=== PATIENT | male | born 1975 | race Two or more races ===

== ENCOUNTER 2019-08-03 17:50 | Inpatient (IN) | payer MEDICAID ==
[~2019-08-03] VITALS: Ht 180.3 cm; Wt 78.1 kg
[2019-08-03] MEDS ORDERED: RISP1TAB27 PO (20:10)
[2019-08-03 23:12] VITALS: BP 107/64
[2019-08-04 03:57] VITALS: BP 113/64
[2019-08-04 07:28] LABS: BASOPHILS % (AUTO) 0.7 % (0.0-2.0); EOSINOPHILS % (AUTO) 4.3 % (1.0-6.0); HEMATOCRIT 42.6 % (41-53); HEMOGLOBIN 13.9 g/dL (13.5-17.5); LYMPHOCYTES # (AUTO) 1.9 K/uL (1.0-4.8); MEAN CORPUSCULAR HEMOGLOBIN 29.2 pg (26.0-34.0); MEAN CORPUSCULAR HGB CONC 32.7 G/dL (31.0-37.0); MEAN CORPUSCULAR VOLUME 89 fL (80-100); MONOCYTES # (AUTO) 0.6 K/uL (0.1-1.0); MONOCYTES % (AUTO) 10.8 % (2.0-9.0); NEUTROPHILS # (AUTO) 2.8 K/uL (1.8-7.7); NEUTROPHILS % (AUTO) 50.2 % (40.0-70.0); PLATELET COUNT (AUTO) 243 K/uL (150-450); RED BLOOD CELL COUNT(AUTO) 4.78 MIL/uL (4.50-5.90); RED CELL DISTRIBUTION WIDTH 14.1 % (11.5-14.5)
[2019-08-04 07:41] LABS: ALANINE AMINOTRANSFERASE 335 U/L (12-78); ALBUMIN 3.4 g/dL (3.4-5.0); ALKALINE PHOSPHATASE 91 U/L (46-116); ANION GAP 8 mmol/L (8-16); ASPARTATE AMINOTRANSFERASE 67 U/L (15-37); BILIRUBIN,TOTAL 0.6 mg/dL (0.1-1.0); CALCIUM, TOTAL 8.5 mg/dL (8.8-10.5); CARBON DIOXIDE 26 mmol/L (22-29); CHLORIDE 105 mmol/L (98-107); CHOL/HDL RATIO 4.7 (4.2-7.3); CHOLESTEROL 156 mg/dL (131-200); CREATININE 0.76 mg/dL (0.60-1.30); FREE T4 (FREE THYROXINE) 1.07 ng/dL (0.76-1.46); GLOMERULAR FILTR. RATE CALC > 60 mL/min (>60); GLUCOSE,RANDOM 80 mg/dL (70-110); HDL CHOLESTEROL 33 mg/dL (40-60); LDL CHOL (CALC.) 92 mg/dL (0-130); POTASSIUM 4.3 mmol/L (3.5-5.1); SODIUM SERUM 139 mmol/L (136-145); THYROID STIMULATING HORMONE 2.62 uIU/mL (0.36-3.74); TOTAL PROTEIN, SERUM 6.9 g/dL (6.4-8.2); TRIGLYCERIDES 156 mg/dL (15-150); UREA NITROGEN, BLOOD 16 mg/dL (7-18)
[2019-08-04 07:43] LABS: HEMOGLOBIN A1C 5.5 % (3.8-5.6)
[2019-08-04 08:13] VITALS: BP 105/62
[2019-08-04] MEDS ORDERED: ACETAMINOPHEN 325 MG TABLET PO PRN (08:30)
[2019-08-04] MEDS ORDERED: MAGNESIUM HYDROXIDE SUSPENSION 30 ML UDCUP PO PRN (08:30)
[2019-08-04] MEDS ORDERED: GuaiFENesin/D-METHORPHAN [SUGAR-FREE] 200-20MG/10 ML SYRUP UDCUP PO PRN (08:30)
[2019-08-04] MEDS ORDERED: CloNIDine HCL 0.1 MG TABLET PO PRN (08:30)
[2019-08-04] MEDS ORDERED: ALBUTEROL SULFATE HFA 90 MCG/PUFF 8 GM INHALER IH PRN (08:30)
[2019-08-04] MEDS ORDERED: PETROLATUM,WHITE 28 GM JELLY TP PRN (08:30)
[2019-08-04] MEDS ORDERED: MAG HYDROX/AL HYDROX/SIMETH ES 30 ML SUSPENSION UDCUP PO PRN (08:30)
[2019-08-04] MEDS ORDERED: LOPERAMIDE HCL 2 MG CAPSULE PO PRN (08:30)
[2019-08-04] MEDS ORDERED: NICOTINE 14 MG/24 HOUR PATCH TD PRN (08:30)
[2019-08-04] MEDS ORDERED: DOCUSATE SODIUM 100 MG CAPSULE PO PRN (08:30)
[2019-08-04] MEDS ORDERED: ONDANSETRON HCL 4 MG TABLET PO PRN (08:30)
[2019-08-04] MEDS: RisperiDONE 1 MG TABLET PO SCH (17:23)
[2019-08-04] MEDS: LORazepam 2 MG TABLET PO PRN (17:31)
[2019-08-05 05:26] VITALS: BP 101/60
[2019-08-05] MEDS: RisperiDONE 1 MG TABLET PO SCH ×2 (08:26→16:29)
[2019-08-05] MEDS ORDERED: DiphenhydrAMINE HCL 50 MG/ML VIAL IM ONE (18:15)
[2019-08-05] MEDS ORDERED: LORazepam 2 MG/ML VIAL IM ONE (18:15)
[2019-08-05] MEDS ORDERED: HALOPERIDOL LACTATE 5 MG/ML VIAL IM ONE (18:15)
[2019-08-06] MEDS: RisperiDONE 1 MG TABLET PO SCH ×2 (08:32→17:00)
[2019-08-06] MEDS: LORazepam 2 MG TABLET PO PRN (08:33)
[2019-08-06 16:40] VITALS: BP 113/71
[2019-08-07 00:28] VITALS: BP 102/62
[2019-08-07] MEDS: LORazepam 2 MG TABLET PO PRN ×2 (01:42→20:59)
[2019-08-07] MEDS: RisperiDONE 1 MG TABLET PO SCH ×2 (08:34→16:37)
[2019-08-07 09:21] VITALS: BP 89/45
[2019-08-07 16:23] VITALS: BP 114/58
[2019-08-08 08:21] LABS: BASOPHILS % (AUTO) 0.8 % (0.0-2.0); HEMATOCRIT 41.8 % (41-53); HEMOGLOBIN 13.4 g/dL (13.5-17.5); LYMPHOCYTES # (AUTO) 1.4 K/uL (1.0-4.8); LYMPHOCYTES % (AUTO) 35.9 % (22.0-44.0); MEAN CORPUSCULAR HEMOGLOBIN 25.7 pg (26.0-34.0); MEAN CORPUSCULAR HGB CONC 32.1 G/dL (31.0-37.0); MEAN CORPUSCULAR VOLUME 80 fL (80-100); MONOCYTES # (AUTO) 0.2 K/uL (0.1-1.0); MONOCYTES % (AUTO) 5.5 % (2.0-9.0); NEUTROPHILS # (AUTO) 2.1 K/uL (1.8-7.7); NEUTROPHILS % (AUTO) 53.8 % (40.0-70.0); PLATELET COUNT (AUTO) 220 K/uL (150-450); RED BLOOD CELL COUNT(AUTO) 5.22 MIL/uL (4.50-5.90); RED CELL DISTRIBUTION WIDTH 13.9 % (11.5-14.5)
[2019-08-08 08:35] LABS: ANION GAP 8 mmol/L (8-16); CALCIUM, TOTAL 9.1 mg/dL (8.8-10.5); CARBON DIOXIDE 28 mmol/L (22-29); CHLORIDE 105 mmol/L (98-107); CREATININE 1.03 mg/dL (0.60-1.30); GLOMERULAR FILTR. RATE CALC > 60 mL/min (>60); GLUCOSE,RANDOM 85 mg/dL (70-110); POTASSIUM 4.1 mmol/L (3.5-5.1); SODIUM SERUM 141 mmol/L (136-145); UREA NITROGEN, BLOOD 14 mg/dL (7-18)
[2019-08-08] MEDS: RisperiDONE 1 MG TABLET PO SCH ×2 (08:58→16:18)
[2019-08-08] MEDS: LORazepam 2 MG TABLET PO PRN ×2 (13:47→20:32)
[2019-08-08] MEDS: ZOLPIDEM TARTRATE 10 MG TABLET PO PRN (20:33)
[2019-08-09 08:15] VITALS: BP 102/64
[2019-08-09 08:18] LABS: HIV 1-2 SCREEN 4TH GEN W/RFLX Non Reactive (Non Reactive)
[2019-08-09] MEDS: RisperiDONE 1 MG TABLET PO SCH ×2 (08:23→16:16)
[2019-08-09 16:12] VITALS: BP 108/69
[2019-08-10 00:43] VITALS: BP 112/83
[2019-08-10] MEDS: RisperiDONE 1 MG TABLET PO SCH ×2 (08:17→16:06)
[2019-08-10] MEDS: MULTIVITAMINS WITH MINERALS, THERAPEUTIC TABLET PO SCH (09:00)
[2019-08-10] MEDS: OMEGA-3/DHA/EPA/FISH OIL 1,000 MG CAPSULE PO SCH (09:00)
[2019-08-10] MEDS: LORazepam 2 MG TABLET PO PRN (16:06)
[2019-08-10 16:19] VITALS: BP 115/66
[2019-08-10] MEDS: ZOLPIDEM TARTRATE 10 MG TABLET PO PRN (21:27)
[2019-08-11 05:50] VITALS: BP 124/84
[2019-08-11] MEDS: RisperiDONE 1 MG TABLET PO SCH ×2 (08:11→16:20)
[2019-08-11] MEDS: OMEGA-3/DHA/EPA/FISH OIL 1,000 MG CAPSULE PO SCH (09:00)
[2019-08-11] MEDS: MULTIVITAMINS WITH MINERALS, THERAPEUTIC TABLET PO SCH (09:00)
[2019-08-11 16:13] VITALS: BP 117/75
[2019-08-11] MEDS: LORazepam 2 MG TABLET PO PRN ×2 (16:20→20:26)
[2019-08-11] MEDS: ZOLPIDEM TARTRATE 10 MG TABLET PO PRN (20:26)
[2019-08-12 06:30] VITALS: BP 122/86
[2019-08-12 08:30] VITALS: BP 90/45
[2019-08-12] MEDS: OMEGA-3/DHA/EPA/FISH OIL 1,000 MG CAPSULE PO SCH (09:00)
[2019-08-12] MEDS: MULTIVITAMINS WITH MINERALS, THERAPEUTIC TABLET PO SCH (09:00)
[2019-08-12] MEDS: RisperiDONE 1 MG TABLET PO SCH ×2 (09:31→16:29)
[2019-08-12] MEDS: HALOPERIDOL 5 MG TABLET PO PRN (16:29)
[2019-08-12] MEDS: LORazepam 2 MG TABLET PO PRN (16:29)
[2019-08-12] MEDS: DiphenhydrAMINE HCL 25 MG CAPSULE PO SCH (21:05)
[2019-08-13] MEDS: RisperiDONE 1 MG TABLET PO SCH ×2 (08:40→16:00)
[2019-08-13] MEDS: OMEGA-3/DHA/EPA/FISH OIL 1,000 MG CAPSULE PO SCH (08:40)
[2019-08-13] MEDS: MULTIVITAMINS WITH MINERALS, THERAPEUTIC TABLET PO SCH (08:40)
[2019-08-13 08:49] LABS: APPEARANCE,URINE CLOUDY (CLEAR); BILIRUBIN,URINE NEGATIVE (NEGATIVE); GLUCOSE, URINE (UA) NEGATIVE (NEGATIVE); KETONES,URINE NEGATIVE (NEGATIVE); LEUKOCYTE ESTERASE ,URINE NEGATIVE (NEGATIVE); NITRATE,URINE NEGATIVE (NEGATIVE); OCCULT BLOOD,URINE NEGATIVE (NEGATIVE); PROTEIN,URINE NEGATIVE (NEGATIVE); UROBILINOGEN,URINE 0.2 mg/dL (<=1.0)
[2019-08-13 09:00] LABS: AMPHET/METH SCREEN,URINE NEGATIVE (NEGATIVE); BARBITURATE SCREEN, URINE NEGATIVE (NEGATIVE); BENZODIAZEPINES SCREEN,URINE NEGATIVE (NEGATIVE); CANNABINOID SCREEN,URINE NEGATIVE (NEGATIVE); COCAINE SCREEN,URINE NEGATIVE (NEGATIVE); METHADONE SCREEN, URINE NEGATIVE (NEGATIVE); OPIATE SCREEN,URINE NEGATIVE (NEGATIVE); PHENCYCLIDINE SCREEN,URINE NEGATIVE (NEGATIVE)
[2019-08-13] MEDS: LORazepam 2 MG TABLET PO PRN (16:00)
[2019-08-13 16:55] VITALS: BP 126/63
[2019-08-13] MEDS: ZOLPIDEM TARTRATE 10 MG TABLET PO PRN (20:20)
[2019-08-13] MEDS: DiphenhydrAMINE HCL 25 MG CAPSULE PO SCH (20:20)
[2019-08-14] MEDS: RisperiDONE 1 MG TABLET PO SCH ×2 (08:40→16:40)
[2019-08-14] MEDS: OMEGA-3/DHA/EPA/FISH OIL 1,000 MG CAPSULE PO SCH (08:40)
[2019-08-14] MEDS: MULTIVITAMINS WITH MINERALS, THERAPEUTIC TABLET PO SCH (08:40)
[2019-08-14 09:25] VITALS: BP 115/65
[2019-08-14 16:37] VITALS: BP 126/76
[2019-08-14] MEDS: LORazepam 2 MG TABLET PO PRN (16:40)
[2019-08-14] MEDS: DiphenhydrAMINE HCL 25 MG CAPSULE PO SCH (21:07)
[2019-08-14] MEDS: ZOLPIDEM TARTRATE 10 MG TABLET PO PRN (21:08)
[2019-08-15 08:16] VITALS: BP 104/67
[2019-08-15] MEDS: RisperiDONE 1 MG TABLET PO SCH ×2 (08:27→16:43)
[2019-08-15] MEDS: OMEGA-3/DHA/EPA/FISH OIL 1,000 MG CAPSULE PO SCH (08:35)
[2019-08-15] MEDS: MULTIVITAMINS WITH MINERALS, THERAPEUTIC TABLET PO SCH (08:35)
[2019-08-15] MEDS ORDERED: RisperiDONE 2 MG TABLET PO ONE (12:00)
[2019-08-15 16:26] VITALS: BP 107/66
[2019-08-15] MEDS: LORazepam 2 MG TABLET PO PRN (18:33)
[2019-08-15] MEDS: DiphenhydrAMINE HCL 25 MG CAPSULE PO SCH (20:37)
[2019-08-15] MEDS: ZOLPIDEM TARTRATE 10 MG TABLET PO PRN (20:37)
[2019-08-16 04:10] VITALS: BP 111/66
[2019-08-16] MEDS: OMEGA-3/DHA/EPA/FISH OIL 1,000 MG CAPSULE PO SCH (08:10)
[2019-08-16] MEDS: MULTIVITAMINS WITH MINERALS, THERAPEUTIC TABLET PO SCH (08:10)
[2019-08-16] MEDS: RisperiDONE 1 MG TABLET PO SCH ×2 (08:11→16:09)
[2019-08-16] MEDS: IBUPROFEN 400 MG TABLET PO PRN (10:02)
[2019-08-16] MEDS: LORazepam 2 MG TABLET PO PRN ×2 (13:18→17:25)
[2019-08-16 16:07] VITALS: BP 115/69
[2019-08-16] MEDS: DiphenhydrAMINE HCL 25 MG CAPSULE PO SCH (20:51)
[2019-08-16] MEDS: ZOLPIDEM TARTRATE 10 MG TABLET PO PRN (20:51)
[2019-08-17 06:14] VITALS: BP 105/61
[2019-08-17] MEDS: RisperiDONE 1 MG TABLET PO SCH ×2 (08:50→16:37)
[2019-08-17] MEDS: OMEGA-3/DHA/EPA/FISH OIL 1,000 MG CAPSULE PO SCH (08:50)
[2019-08-17] MEDS: LORazepam 2 MG TABLET PO PRN ×2 (08:50→16:37)
[2019-08-17] MEDS: MULTIVITAMINS WITH MINERALS, THERAPEUTIC TABLET PO SCH (08:50)
[2019-08-17] MEDS: DiphenhydrAMINE HCL 25 MG CAPSULE PO SCH (20:18)
[2019-08-17 20:20] VITALS: BP 105/67
[2019-08-17] MEDS: ZOLPIDEM TARTRATE 10 MG TABLET PO PRN (21:03)
[2019-08-18 05:57] VITALS: BP 124/86
[2019-08-18] MEDS: OMEGA-3/DHA/EPA/FISH OIL 1,000 MG CAPSULE PO SCH (08:40)
[2019-08-18] MEDS: MULTIVITAMINS WITH MINERALS, THERAPEUTIC TABLET PO SCH (08:40)
[2019-08-18] MEDS: RisperiDONE 1 MG TABLET PO SCH ×2 (08:40→16:21)
[2019-08-18] MEDS: LORazepam 2 MG TABLET PO PRN (14:47)
[2019-08-18] MEDS: DiphenhydrAMINE HCL 25 MG CAPSULE PO SCH (20:23)
[2019-08-18] MEDS: IBUPROFEN 400 MG TABLET PO PRN (20:23)
[2019-08-18] MEDS: ZOLPIDEM TARTRATE 10 MG TABLET PO PRN (20:25)
[2019-08-19] MEDS: LORazepam 2 MG TABLET PO PRN (04:52)
[2019-08-19] MEDS: HALOPERIDOL 5 MG TABLET PO PRN (04:52)
[2019-08-19 06:05] VITALS: BP 112/86
[2019-08-19] MEDS: RisperiDONE 1 MG TABLET PO SCH (08:02)
[2019-08-19] MEDS: OMEGA-3/DHA/EPA/FISH OIL 1,000 MG CAPSULE PO SCH (08:02)
[2019-08-19] MEDS: MULTIVITAMINS WITH MINERALS, THERAPEUTIC TABLET PO SCH (08:02)
[2019-08-19] MEDS ORDERED: RISP2TAB76 PO (11:21)
[2019-08-19] MEDS ORDERED: DIPH25CA85 PO (11:23)
== END 2019-08-19 15:24 | disposition home or self-care (01) | DRG 750 ==
LOC: B3A 22:46
PROVIDERS: ADMIT Psychiatry & Neurology Child & Adolescent Psychiatry; ATTEND Psychiatry & Neurology Child & Adolescent Psychiatry
DX: F20.0 Paranoid schizophrenia (principal); R74.0 Nonspecific elevation of levels of transaminase and lactic acid dehydrogenase [LDH]; E78.5 Hyperlipidemia, unspecified; F10.10 Alcohol abuse, uncomplicated; Z21 Asymptomatic human immunodeficiency virus [HIV] infection status; Y90.9 Presence of alcohol in blood, level not specified; F19.10 Other psychoactive substance abuse, uncomplicated
CPT/HCPCS: 80074; 80307; 83036; 84439; 84443; 86592; 87081; 87389; J1200; J1630; J2060

== ENCOUNTER 2020-01-01 10:50 | Inpatient (IN) | payer MEDICAID ==
[~2020-01-01] VITALS: Ht 177.8 cm; Wt 81.4 kg
[~2020-01-01 10:50] MED LIST: DIPH25CA85 PO; RISP2TAB76 PO
[2020-01-01] MEDS ORDERED: BENZ1TAB10 PO (12:20)
[2020-01-01] MEDS ORDERED: OLAN10TA3 PO (12:22)
[2020-01-01] MEDS ORDERED: DIVA-112 PO (12:24)
[2020-01-01] MEDS: DIVALPROEX SODIUM 500 MG DR TABLET PO SCH ×2 (12:30→16:54)
[2020-01-01 14:02] VITALS: BP 120/65
[2020-01-01] MEDS ORDERED: INFLUENZA VIRUS VACCINE QVS 2020-21 (6MO+)/PF 60 MCG/0.5 ML SYRINGE IM ONE (14:30)
[2020-01-01] MEDS ORDERED: PNEUMOCOCCAL VACCINE POLYVALENT 0.5 ML VIAL [PPSV23] IM ONE (14:30)
[2020-01-01] MEDS: LORazepam 2 MG TABLET PO PRN (14:54)
[2020-01-01] MEDS: OLANZapine 10 MG TABLET PO SCH (20:13)
[2020-01-01] MEDS: BENZTROPINE MESYLATE 1 MG TABLET PO SCH (20:13)
[2020-01-01 23:38] VITALS: BP 118/66
[2020-01-02 01:43] VITALS: BP 111/68
[2020-01-02 07:43] LABS: BASOPHILS % (AUTO) 0.6 % (0.0-2.0); EOSINOPHILS % (AUTO) 5.6 % (1.0-6.0); HEMATOCRIT 38.4 % (41-53); HEMOGLOBIN 12.6 g/dL (13.5-17.5); LYMPHOCYTES # (AUTO) 2.2 K/uL (1.0-4.8); LYMPHOCYTES % (AUTO) 46.3 % (22.0-44.0); MEAN CORPUSCULAR HGB CONC 32.7 G/dL (31.0-37.0); MEAN CORPUSCULAR VOLUME 83 fL (80-100); MONOCYTES # (AUTO) 0.3 K/uL (0.1-1.0); MONOCYTES % (AUTO) 6.1 % (2.0-9.0); NEUTROPHILS # (AUTO) 1.9 K/uL (1.8-7.7); NEUTROPHILS % (AUTO) 41.4 % (40.0-70.0); PLATELET COUNT (AUTO) 187 K/uL (150-450); RED BLOOD CELL COUNT(AUTO) 4.66 MIL/uL (4.50-5.90); RED CELL DISTRIBUTION WIDTH 13.8 % (11.5-14.5)
[2020-01-02 08:03] LABS: HEMOGLOBIN A1C 5.4 % (3.8-5.6)
[2020-01-02 08:09] LABS: ALANINE AMINOTRANSFERASE 20 U/L (12-78); ALKALINE PHOSPHATASE 34 U/L (46-116); ANION GAP 7 mmol/L (8-16); ASPARTATE AMINOTRANSFERASE 12 U/L (15-37); BILIRUBIN,TOTAL 0.2 mg/dL (0.1-1.0); CALCIUM, TOTAL 8.9 mg/dL (8.8-10.5); CARBON DIOXIDE 29 mmol/L (22-29); CHLORIDE 106 mmol/L (98-107); CHOL/HDL RATIO 3.8 (4.2-7.3); CHOLESTEROL 163 mg/dL (131-200); CREATININE 0.89 mg/dL (0.60-1.30); GLOMERULAR FILTR. RATE CALC > 60 mL/min (>60); GLUCOSE,RANDOM 78 mg/dL (70-110); HDL CHOLESTEROL 43 mg/dL (40-60); LDL CHOL (CALC.) 80 mg/dL (0-130); POTASSIUM 3.8 mmol/L (3.5-5.1); SODIUM SERUM 142 mmol/L (136-145); TOTAL PROTEIN, SERUM 6.6 g/dL (6.4-8.2); TRIGLYCERIDES 200 mg/dL (15-150); UREA NITROGEN, BLOOD 14 mg/dL (7-18)
[2020-01-02] MEDS: DIVALPROEX SODIUM 500 MG DR TABLET PO SCH ×2 (08:15→16:35)
[2020-01-02 12:50] VITALS: BP 100/63
[2020-01-02 17:31] VITALS: BP 110/81
[2020-01-02] MEDS: OLANZapine 10 MG TABLET PO SCH (20:05)
[2020-01-02] MEDS: BENZTROPINE MESYLATE 1 MG TABLET PO SCH (20:05)
[2020-01-02] MEDS ORDERED: LOPERAMIDE HCL 2 MG CAPSULE PO PRN (20:15)
[2020-01-02] MEDS ORDERED: OMEPRAZOLE 20 MG CAPSULE PO PRN (20:15)
[2020-01-02] MEDS ORDERED: MAGNESIUM HYDROXIDE SUSPENSION 30 ML UDCUP PO PRN (20:15)
[2020-01-02] MEDS ORDERED: DOCUSATE SODIUM 100 MG CAPSULE PO PRN (20:15)
[2020-01-02] MEDS ORDERED: PETROLATUM,WHITE 28 GM JELLY TP PRN (20:15)
[2020-01-02] MEDS ORDERED: CloNIDine HCL 0.1 MG TABLET PO PRN (20:15)
[2020-01-02] MEDS ORDERED: ALBUTEROL SULFATE HFA 90 MCG/PUFF 8 GM INHALER IH PRN (20:15)
[2020-01-02] MEDS ORDERED: BACITRACIN 28 GM OINTMENT TP PRN (20:15)
[2020-01-02] MEDS ORDERED: MAG HYDROX/AL HYDROX/SIMETH ES 30 ML SUSPENSION UDCUP PO PRN (20:15)
[2020-01-02] MEDS ORDERED: ONDANSETRON HCL 4 MG TABLET PO PRN (20:15)
[2020-01-02] MEDS ORDERED: BENZOCAINE/MENTHOL LOZENGE PO PRN (20:15)
[2020-01-02] MEDS: ZOLPIDEM TARTRATE 10 MG TABLET PO PRN (23:11)
[2020-01-03 06:31] VITALS: BP 110/68
[2020-01-03] MEDS: OMEGA-3/DHA/EPA/FISH OIL 1,000 MG CAPSULE PO SCH (08:22)
[2020-01-03] MEDS: DIVALPROEX SODIUM 500 MG DR TABLET PO SCH ×2 (08:22→16:04)
[2020-01-03 09:36] VITALS: BP 102/51
[2020-01-03] MEDS: LORazepam 2 MG TABLET PO PRN (11:37)
[2020-01-03] MEDS: ACETAMINOPHEN 325 MG TABLET PO PRN (16:05)
[2020-01-03] MEDS: BENZTROPINE MESYLATE 1 MG TABLET PO SCH (20:21)
[2020-01-03] MEDS: OLANZapine 10 MG TABLET PO SCH (20:21)
[2020-01-04] MEDS: OMEGA-3/DHA/EPA/FISH OIL 1,000 MG CAPSULE PO SCH (08:21)
[2020-01-04] MEDS: DIVALPROEX SODIUM 500 MG DR TABLET PO SCH ×2 (08:21→16:06)
[2020-01-04 10:00] VITALS: BP 103/60
[2020-01-04] MEDS: LORazepam 2 MG TABLET PO PRN (16:06)
[2020-01-04 16:11] VITALS: BP 128/74
[2020-01-04] MEDS: OLANZapine 10 MG TABLET PO SCH (20:10)
[2020-01-04] MEDS: BENZTROPINE MESYLATE 1 MG TABLET PO SCH (20:10)
[2020-01-05 04:15] VITALS: BP 100/58
[2020-01-05 08:25] VITALS: BP 97/71
[2020-01-05] MEDS: DIVALPROEX SODIUM 500 MG DR TABLET PO SCH ×2 (08:38→16:08)
[2020-01-05] MEDS: OMEGA-3/DHA/EPA/FISH OIL 1,000 MG CAPSULE PO SCH (08:38)
[2020-01-05 12:12] VITALS: BP 112/67
[2020-01-05] MEDS: LORazepam 2 MG TABLET PO PRN (12:12)
[2020-01-05] MEDS: HALOPERIDOL 5 MG TABLET PO PRN (12:12)
[2020-01-05 16:09] VITALS: BP 104/69
[2020-01-05] MEDS: BENZTROPINE MESYLATE 1 MG TABLET PO SCH (20:29)
[2020-01-05] MEDS: OLANZapine 10 MG TABLET PO SCH (20:29)
[2020-01-06 05:28] VITALS: BP 102/62
[2020-01-06] MEDS: OMEGA-3/DHA/EPA/FISH OIL 1,000 MG CAPSULE PO SCH (08:26)
[2020-01-06] MEDS: DIVALPROEX SODIUM 500 MG DR TABLET PO SCH ×2 (08:26→16:45)
[2020-01-06 08:43] VITALS: BP 109/65
[2020-01-06 16:05] VITALS: BP 115/68
[2020-01-06] MEDS: BENZTROPINE MESYLATE 1 MG TABLET PO SCH (20:36)
[2020-01-06] MEDS: OLANZapine 10 MG TABLET PO SCH (20:36)
[2020-01-07 08:08] LABS: FREE T4 (FREE THYROXINE) 1.01 ng/dL (0.76-1.46); THYROID STIMULATING HORMONE 1.9 uIU/mL (0.36-3.74)
[2020-01-07] MEDS: OMEGA-3/DHA/EPA/FISH OIL 1,000 MG CAPSULE PO SCH (08:28)
[2020-01-07] MEDS: RisperiDONE 3 MG TABLET PO SCH ×2 (08:28→20:04)
[2020-01-07] MEDS: DIVALPROEX SODIUM 500 MG DR TABLET PO SCH ×2 (08:28→17:26)
[2020-01-07] MEDS: MULTIVITAMINS WITH IRON TABLET PO SCH (08:28)
[2020-01-07 17:25] VITALS: BP 112/73
[2020-01-07] MEDS: OLANZapine 10 MG TABLET PO SCH (20:04)
[2020-01-07] MEDS: BENZTROPINE MESYLATE 1 MG TABLET PO SCH (20:04)
[2020-01-08] MEDS: OMEGA-3/DHA/EPA/FISH OIL 1,000 MG CAPSULE PO SCH (08:38)
[2020-01-08] MEDS: MULTIVITAMINS WITH IRON TABLET PO SCH (08:38)
[2020-01-08] MEDS: DIVALPROEX SODIUM 500 MG DR TABLET PO SCH ×2 (08:38→16:07)
[2020-01-08] MEDS: RisperiDONE 3 MG TABLET PO SCH ×2 (08:38→20:10)
[2020-01-08] MEDS: BENZTROPINE MESYLATE 1 MG TABLET PO SCH (20:10)
[2020-01-08] MEDS: OLANZapine 10 MG TABLET PO SCH (20:10)
[2020-01-09 00:13] VITALS: BP 115/69
[2020-01-09] MEDS: DIVALPROEX SODIUM 500 MG DR TABLET PO SCH ×2 (08:13→16:02)
[2020-01-09] MEDS: RisperiDONE 3 MG TABLET PO SCH ×2 (08:13→20:09)
[2020-01-09] MEDS: OMEGA-3/DHA/EPA/FISH OIL 1,000 MG CAPSULE PO SCH (08:13)
[2020-01-09] MEDS: MULTIVITAMINS WITH IRON TABLET PO SCH (08:13)
[2020-01-09] MEDS: LORazepam 2 MG TABLET PO PRN (18:05)
[2020-01-09] MEDS: OLANZapine 10 MG TABLET PO SCH (20:00)
[2020-01-09] MEDS: BENZTROPINE MESYLATE 1 MG TABLET PO SCH (20:09)
[2020-01-09] MEDS ORDERED: OLANZapine 5 MG TABLET PO ONE (20:15)
[2020-01-10 06:04] VITALS: BP 125/78
[2020-01-10] MEDS: MULTIVITAMINS WITH IRON TABLET PO SCH (08:45)
[2020-01-10] MEDS: OMEGA-3/DHA/EPA/FISH OIL 1,000 MG CAPSULE PO SCH (08:45)
[2020-01-10] MEDS: RisperiDONE 3 MG TABLET PO SCH ×2 (08:45→20:39)
[2020-01-10] MEDS: DIVALPROEX SODIUM 500 MG DR TABLET PO SCH ×2 (08:45→16:41)
[2020-01-10 08:48] VITALS: BP 126/70
[2020-01-10 15:46] VITALS: BP 129/81
[2020-01-10 16:16] VITALS: BP 129/81
[2020-01-10] MEDS: OLANZapine 7.5 MG TABLET PO SCH (20:39)
[2020-01-10] MEDS: BENZTROPINE MESYLATE 1 MG TABLET PO SCH (20:39)
[2020-01-11 06:10] VITALS: BP 100/67
[2020-01-11 08:34] VITALS: BP 95/61
[2020-01-11] MEDS: RisperiDONE 3 MG TABLET PO SCH ×2 (08:51→20:29)
[2020-01-11] MEDS: MULTIVITAMINS WITH IRON TABLET PO SCH (08:51)
[2020-01-11] MEDS: OMEGA-3/DHA/EPA/FISH OIL 1,000 MG CAPSULE PO SCH (08:51)
[2020-01-11] MEDS: DIVALPROEX SODIUM 500 MG DR TABLET PO SCH ×2 (08:51→16:06)
[2020-01-11 16:05] VITALS: BP 117/64
[2020-01-11] MEDS: LORazepam 2 MG TABLET PO PRN ×2 (16:06→21:41)
[2020-01-11] MEDS: OLANZapine 7.5 MG TABLET PO SCH (20:29)
[2020-01-11] MEDS: BENZTROPINE MESYLATE 1 MG TABLET PO SCH (20:29)
[2020-01-12 01:27] VITALS: BP 103/66
[2020-01-12 08:32] VITALS: BP 114/78
[2020-01-12] MEDS: DIVALPROEX SODIUM 500 MG DR TABLET PO SCH ×2 (08:57→16:29)
[2020-01-12] MEDS: OMEGA-3/DHA/EPA/FISH OIL 1,000 MG CAPSULE PO SCH (08:57)
[2020-01-12] MEDS: RisperiDONE 3 MG TABLET PO SCH ×2 (08:57→20:08)
[2020-01-12] MEDS: MULTIVITAMINS WITH IRON TABLET PO SCH (08:57)
[2020-01-12 16:10] VITALS: BP 118/72
[2020-01-12] MEDS: BENZTROPINE MESYLATE 1 MG TABLET PO SCH (20:08)
[2020-01-12] MEDS: OLANZapine 7.5 MG TABLET PO SCH (20:09)
[2020-01-12] MEDS: LORazepam 2 MG TABLET PO PRN (20:32)
[2020-01-12] MEDS: HALOPERIDOL 5 MG TABLET PO PRN (20:33)
[2020-01-13] MEDS: OMEGA-3/DHA/EPA/FISH OIL 1,000 MG CAPSULE PO SCH (09:29)
[2020-01-13] MEDS: DIVALPROEX SODIUM 500 MG DR TABLET PO SCH ×2 (09:29→17:04)
[2020-01-13] MEDS: MULTIVITAMINS WITH IRON TABLET PO SCH (09:29)
[2020-01-13] MEDS: RisperiDONE 3 MG TABLET PO SCH ×2 (09:29→19:58)
[2020-01-13 13:44] VITALS: BP 110/66
[2020-01-13 16:37] VITALS: BP 99/57
[2020-01-13] MEDS: OLANZapine 7.5 MG TABLET PO SCH (19:58)
[2020-01-13] MEDS: BENZTROPINE MESYLATE 1 MG TABLET PO SCH (19:58)
[2020-01-13] MEDS: LORazepam 2 MG TABLET PO PRN (21:27)
[2020-01-13] MEDS: HALOPERIDOL 5 MG TABLET PO PRN (21:27)
[2020-01-14 00:08] VITALS: BP 104/61
[2020-01-14] MEDS: RisperiDONE 3 MG TABLET PO SCH ×2 (08:31→20:13)
[2020-01-14] MEDS: OMEGA-3/DHA/EPA/FISH OIL 1,000 MG CAPSULE PO SCH (08:31)
[2020-01-14] MEDS: DIVALPROEX SODIUM 500 MG DR TABLET PO SCH ×2 (08:31→16:15)
[2020-01-14] MEDS: MULTIVITAMINS WITH IRON TABLET PO SCH (08:31)
[2020-01-14 16:04] VITALS: BP 121/62
[2020-01-14] MEDS: HALOPERIDOL 5 MG TABLET PO PRN (18:02)
[2020-01-14] MEDS: LORazepam 2 MG TABLET PO PRN (18:02)
[2020-01-14] MEDS: BENZTROPINE MESYLATE 1 MG TABLET PO SCH (20:13)
[2020-01-14] MEDS: OLANZapine 7.5 MG TABLET PO SCH (20:13)
[2020-01-15 00:08] VITALS: BP 106/62
[2020-01-15 08:25] VITALS: BP 107/64
[2020-01-15] MEDS: RisperiDONE 3 MG TABLET PO SCH ×2 (09:04→20:00)
[2020-01-15] MEDS: OMEGA-3/DHA/EPA/FISH OIL 1,000 MG CAPSULE PO SCH (09:04)
[2020-01-15] MEDS: DIVALPROEX SODIUM 500 MG DR TABLET PO SCH ×2 (09:04→16:36)
[2020-01-15] MEDS: MULTIVITAMINS WITH IRON TABLET PO SCH (09:04)
[2020-01-15] MEDS: LORazepam 2 MG TABLET PO PRN (18:09)
[2020-01-15] MEDS: HALOPERIDOL 5 MG TABLET PO PRN (18:09)
[2020-01-15] MEDS: BENZTROPINE MESYLATE 1 MG TABLET PO SCH (19:59)
[2020-01-15] MEDS: OLANZapine 7.5 MG TABLET PO SCH (20:00)
[2020-01-16] MEDS: RisperiDONE 4 MG TABLET PO SCH ×2 (08:39→16:38)
[2020-01-16] MEDS: DIVALPROEX SODIUM 500 MG DR TABLET PO SCH ×2 (08:39→16:38)
[2020-01-16] MEDS: MULTIVITAMINS WITH IRON TABLET PO SCH (08:39)
[2020-01-16] MEDS: OMEGA-3/DHA/EPA/FISH OIL 1,000 MG CAPSULE PO SCH (08:41)
[2020-01-16] MEDS: OLANZapine 7.5 MG TABLET PO SCH (20:28)
[2020-01-16] MEDS: BENZTROPINE MESYLATE 1 MG TABLET PO SCH (20:28)
[2020-01-17] MEDS: DIVALPROEX SODIUM 500 MG DR TABLET PO SCH ×2 (08:31→16:38)
[2020-01-17] MEDS: MULTIVITAMINS WITH IRON TABLET PO SCH (08:31)
[2020-01-17] MEDS: OMEGA-3/DHA/EPA/FISH OIL 1,000 MG CAPSULE PO SCH (08:31)
[2020-01-17] MEDS: RisperiDONE 4 MG TABLET PO SCH ×2 (08:31→16:38)
[2020-01-17] MEDS: LORazepam 2 MG TABLET PO PRN (16:39)
[2020-01-17 17:53] VITALS: BP 105/73
[2020-01-17] MEDS: OLANZapine 7.5 MG TABLET PO SCH (20:12)
[2020-01-17] MEDS: BENZTROPINE MESYLATE 1 MG TABLET PO SCH (20:12)
[2020-01-18 05:42] VITALS: BP 110/73
[2020-01-18 08:03] VITALS: BP 109/65
[2020-01-18] MEDS: OMEGA-3/DHA/EPA/FISH OIL 1,000 MG CAPSULE PO SCH (08:04)
[2020-01-18] MEDS: DIVALPROEX SODIUM 500 MG DR TABLET PO SCH ×2 (08:04→16:01)
[2020-01-18] MEDS: RisperiDONE 4 MG TABLET PO SCH ×2 (08:04→16:01)
[2020-01-18] MEDS: MULTIVITAMINS WITH IRON TABLET PO SCH (08:04)
[2020-01-18] MEDS: LORazepam 2 MG TABLET PO PRN (16:01)
[2020-01-18] MEDS: HALOPERIDOL 5 MG TABLET PO PRN (17:25)
[2020-01-18] MEDS: OLANZapine 7.5 MG TABLET PO SCH (20:10)
[2020-01-18] MEDS: BENZTROPINE MESYLATE 1 MG TABLET PO SCH (20:11)
[2020-01-19 06:22] VITALS: BP 109/70
[2020-01-19] MEDS: MULTIVITAMINS WITH IRON TABLET PO SCH (08:10)
[2020-01-19] MEDS: DIVALPROEX SODIUM 500 MG DR TABLET PO SCH ×2 (08:10→16:05)
[2020-01-19] MEDS: OMEGA-3/DHA/EPA/FISH OIL 1,000 MG CAPSULE PO SCH (08:10)
[2020-01-19] MEDS: RisperiDONE 4 MG TABLET PO SCH ×2 (08:10→16:05)
[2020-01-19 08:43] VITALS: BP 102/61
[2020-01-19 12:27] VITALS: BP 121/76
[2020-01-19] MEDS: LORazepam 2 MG TABLET PO PRN (12:27)
[2020-01-19] MEDS: HALOPERIDOL 5 MG TABLET PO PRN (12:34)
[2020-01-19 16:20] VITALS: BP 124/89
[2020-01-19] MEDS: BENZTROPINE MESYLATE 1 MG TABLET PO SCH (20:14)
[2020-01-19] MEDS: OLANZapine 7.5 MG TABLET PO SCH (20:15)
[2020-01-19] MEDS: ZOLPIDEM TARTRATE 10 MG TABLET PO PRN (21:18)
[2020-01-20 00:13] VITALS: BP 121/82
[2020-01-20 08:29] VITALS: BP 107/66
[2020-01-20] MEDS: DIVALPROEX SODIUM 500 MG DR TABLET PO SCH ×2 (08:51→18:53)
[2020-01-20] MEDS: RisperiDONE 4 MG TABLET PO SCH ×2 (08:51→18:53)
[2020-01-20] MEDS: OMEGA-3/DHA/EPA/FISH OIL 1,000 MG CAPSULE PO SCH (08:51)
[2020-01-20] MEDS: MULTIVITAMINS WITH IRON TABLET PO SCH (08:52)
[2020-01-20] MEDS: LORazepam 2 MG TABLET PO PRN ×2 (13:01→18:53)
[2020-01-20] MEDS: HALOPERIDOL 5 MG TABLET PO PRN (13:01)
[2020-01-20 19:15] LABS: COVID AG,FIA SOURCE NASAL SWAB
[2020-01-20] MEDS: BENZTROPINE MESYLATE 1 MG TABLET PO SCH (20:18)
[2020-01-20] MEDS: ZOLPIDEM TARTRATE 10 MG TABLET PO PRN (20:19)
[2020-01-20] MEDS: OLANZapine 7.5 MG TABLET PO SCH (20:19)
[2020-01-21 01:30] VITALS: BP 122/61
[2020-01-21 08:03] VITALS: BP 107/68
[2020-01-21] MEDS: DIVALPROEX SODIUM 500 MG DR TABLET PO SCH ×2 (08:23→16:26)
[2020-01-21] MEDS: OMEGA-3/DHA/EPA/FISH OIL 1,000 MG CAPSULE PO SCH (08:23)
[2020-01-21] MEDS: RisperiDONE 4 MG TABLET PO SCH ×2 (08:23→16:25)
[2020-01-21] MEDS: MULTIVITAMINS WITH IRON TABLET PO SCH (08:23)
[2020-01-21 16:02] VITALS: BP 103/61
[2020-01-21] MEDS: LORazepam 2 MG TABLET PO PRN ×2 (16:26→22:18)
[2020-01-21] MEDS: BENZTROPINE MESYLATE 1 MG TABLET PO SCH (20:13)
[2020-01-21] MEDS: OLANZapine 7.5 MG TABLET PO SCH (20:13)
[2020-01-21] MEDS: ZOLPIDEM TARTRATE 10 MG TABLET PO PRN (20:13)
[2020-01-22 00:28] VITALS: BP 115/64
[2020-01-22 08:03] VITALS: BP 110/73
[2020-01-22] MEDS: RisperiDONE 4 MG TABLET PO SCH ×2 (09:32→16:25)
[2020-01-22] MEDS: MULTIVITAMINS WITH IRON TABLET PO SCH (09:32)
[2020-01-22] MEDS: DIVALPROEX SODIUM 500 MG DR TABLET PO SCH ×2 (09:32→16:25)
[2020-01-22] MEDS: OMEGA-3/DHA/EPA/FISH OIL 1,000 MG CAPSULE PO SCH (09:32)
[2020-01-22] MEDS: LORazepam 2 MG TABLET PO PRN ×3 (11:05→20:28)
[2020-01-22 16:17] VITALS: BP 95/58
[2020-01-22 17:00] VITALS: BP 102/60
[2020-01-22] MEDS: OLANZapine 7.5 MG TABLET PO SCH (20:28)
[2020-01-22] MEDS: BENZTROPINE MESYLATE 1 MG TABLET PO SCH (20:28)
[2020-01-23 01:40] VITALS: BP 114/65
[2020-01-23] MEDS: LORazepam 2 MG TABLET PO PRN ×3 (01:47→18:31)
[2020-01-23] MEDS: ZOLPIDEM TARTRATE 10 MG TABLET PO PRN (01:47)
[2020-01-23 08:03] VITALS: BP 99/58
[2020-01-23] MEDS: OMEGA-3/DHA/EPA/FISH OIL 1,000 MG CAPSULE PO SCH (08:58)
[2020-01-23] MEDS: RisperiDONE 4 MG TABLET PO SCH ×2 (08:58→16:31)
[2020-01-23] MEDS: DIVALPROEX SODIUM 500 MG DR TABLET PO SCH ×2 (08:58→16:31)
[2020-01-23] MEDS: MULTIVITAMINS WITH IRON TABLET PO SCH (08:58)
[2020-01-23 16:02] VITALS: BP 103/68
[2020-01-23] MEDS: OLANZapine 7.5 MG TABLET PO SCH (20:27)
[2020-01-23] MEDS: BENZTROPINE MESYLATE 1 MG TABLET PO SCH (20:27)
[2020-01-24 06:10] VITALS: BP 108/71
[2020-01-24] MEDS: OMEGA-3/DHA/EPA/FISH OIL 1,000 MG CAPSULE PO SCH (08:30)
[2020-01-24] MEDS: LORazepam 2 MG TABLET PO PRN (08:30)
[2020-01-24] MEDS: MULTIVITAMINS WITH IRON TABLET PO SCH (08:30)
[2020-01-24] MEDS: DIVALPROEX SODIUM 500 MG DR TABLET PO SCH ×2 (08:30→16:49)
[2020-01-24] MEDS: RisperiDONE 4 MG TABLET PO SCH ×2 (08:30→16:49)
[2020-01-24 14:49] VITALS: BP 100/63
[2020-01-24 16:07] VITALS: BP 105/62
[2020-01-24] MEDS: OLANZapine 7.5 MG TABLET PO SCH (20:59)
[2020-01-24] MEDS: BENZTROPINE MESYLATE 1 MG TABLET PO SCH (20:59)
[2020-01-24] MEDS: ZOLPIDEM TARTRATE 10 MG TABLET PO PRN (21:02)
[2020-01-25 01:49] VITALS: BP 112/64
[2020-01-25] MEDS: MULTIVITAMINS WITH IRON TABLET PO SCH (08:01)
[2020-01-25] MEDS: OMEGA-3/DHA/EPA/FISH OIL 1,000 MG CAPSULE PO SCH (08:01)
[2020-01-25] MEDS: RisperiDONE 4 MG TABLET PO SCH ×2 (08:02→16:40)
[2020-01-25] MEDS: DIVALPROEX SODIUM 500 MG DR TABLET PO SCH ×2 (08:02→16:40)
[2020-01-25 08:03] VITALS: BP 107/68
[2020-01-25 16:17] VITALS: BP 121/78
[2020-01-25] MEDS: LORazepam 2 MG TABLET PO PRN ×2 (16:40→20:41)
[2020-01-25] MEDS: BENZTROPINE MESYLATE 1 MG TABLET PO SCH (20:17)
[2020-01-25] MEDS: OLANZapine 7.5 MG TABLET PO SCH (20:17)
[2020-01-25] MEDS: ZOLPIDEM TARTRATE 10 MG TABLET PO PRN (20:46)
[2020-01-25] MEDS: HALOPERIDOL 5 MG TABLET PO PRN (20:46)
[2020-01-26 04:35] VITALS: BP 125/80
[2020-01-26] MEDS: DIVALPROEX SODIUM 500 MG DR TABLET PO SCH ×2 (08:02→16:46)
[2020-01-26] MEDS: MULTIVITAMINS WITH IRON TABLET PO SCH (08:02)
[2020-01-26] MEDS: LORazepam 2 MG TABLET PO PRN ×3 (08:02→17:20)
[2020-01-26] MEDS: OMEGA-3/DHA/EPA/FISH OIL 1,000 MG CAPSULE PO SCH (08:02)
[2020-01-26] MEDS: RisperiDONE 4 MG TABLET PO SCH ×2 (08:02→16:46)
[2020-01-26 08:03] VITALS: BP 114/69
[2020-01-26] MEDS: HALOPERIDOL 5 MG TABLET PO PRN ×2 (12:29→16:46)
[2020-01-26 16:14] VITALS: BP 101/60
[2020-01-26] MEDS: OLANZapine 7.5 MG TABLET PO SCH (20:45)
[2020-01-26] MEDS: ZOLPIDEM TARTRATE 10 MG TABLET PO PRN (20:45)
[2020-01-26] MEDS: BENZTROPINE MESYLATE 1 MG TABLET PO SCH (20:45)
[2020-01-27 01:48] VITALS: BP 116/64
[2020-01-27 08:03] VITALS: BP 117/70
[2020-01-27] MEDS: DIVALPROEX SODIUM 500 MG DR TABLET PO SCH ×2 (09:53→16:06)
[2020-01-27] MEDS: RisperiDONE 4 MG TABLET PO SCH ×2 (09:53→16:06)
[2020-01-27] MEDS: OMEGA-3/DHA/EPA/FISH OIL 1,000 MG CAPSULE PO SCH (09:53)
[2020-01-27] MEDS: MULTIVITAMINS WITH IRON TABLET PO SCH (09:53)
[2020-01-27] MEDS: HALOPERIDOL 5 MG TABLET PO PRN ×2 (09:54→14:47)
[2020-01-27] MEDS: LORazepam 2 MG TABLET PO PRN ×2 (09:54→15:07)
[2020-01-27 16:09] VITALS: BP 117/65
[2020-01-27] MEDS: BENZTROPINE MESYLATE 1 MG TABLET PO SCH (20:02)
[2020-01-27] MEDS: ZOLPIDEM TARTRATE 10 MG TABLET PO PRN (20:02)
[2020-01-27] MEDS: OLANZapine 7.5 MG TABLET PO SCH (20:02)
[2020-01-28 03:13] VITALS: BP 120/68
[2020-01-28] MEDS: DIVALPROEX SODIUM 500 MG DR TABLET PO SCH ×2 (09:46→16:22)
[2020-01-28] MEDS: MULTIVITAMINS WITH IRON TABLET PO SCH (09:46)
[2020-01-28] MEDS: RisperiDONE 4 MG TABLET PO SCH ×2 (09:46→16:22)
[2020-01-28] MEDS: OMEGA-3/DHA/EPA/FISH OIL 1,000 MG CAPSULE PO SCH (09:46)
[2020-01-28] MEDS: LORazepam 2 MG TABLET PO PRN ×3 (13:11→17:11)
[2020-01-28 16:05] VITALS: BP 124/64
[2020-01-28] MEDS: HALOPERIDOL 5 MG TABLET PO PRN (16:22)
[2020-01-28] MEDS: BENZTROPINE MESYLATE 1 MG TABLET PO SCH (20:44)
[2020-01-28] MEDS: OLANZapine 7.5 MG TABLET PO SCH (20:44)
[2020-01-29 03:36] VITALS: BP 116/75
[2020-01-29 04:29] VITALS: BP 118/66
[2020-01-29] MEDS: DIVALPROEX SODIUM 500 MG DR TABLET PO SCH ×2 (08:07→16:06)
[2020-01-29] MEDS: OMEGA-3/DHA/EPA/FISH OIL 1,000 MG CAPSULE PO SCH (08:07)
[2020-01-29] MEDS: RisperiDONE 4 MG TABLET PO SCH ×2 (08:08→16:06)
[2020-01-29] MEDS: MULTIVITAMINS WITH IRON TABLET PO SCH (08:08)
[2020-01-29] MEDS: LORazepam 2 MG TABLET PO PRN ×3 (08:09→20:21)
[2020-01-29] MEDS ORDERED: OMEGA-3/DHA/EPA/FISH OIL 1,000 MG CAPSULE PO SCH (09:00)
[2020-01-29] MEDS: HALOPERIDOL 5 MG TABLET PO PRN (13:42)
[2020-01-29 16:14] VITALS: BP 112/70
[2020-01-29] MEDS: BENZTROPINE MESYLATE 1 MG TABLET PO SCH (20:20)
[2020-01-29] MEDS: ZOLPIDEM TARTRATE 10 MG TABLET PO PRN (20:21)
[2020-01-29] MEDS: OLANZapine 7.5 MG TABLET PO SCH (20:21)
[2020-01-30 03:56] VITALS: BP 123/64
[2020-01-30] MEDS: OMEGA-3/DHA/EPA/FISH OIL 1,000 MG CAPSULE PO SCH (08:01)
[2020-01-30] MEDS: DIVALPROEX SODIUM 500 MG DR TABLET PO SCH ×2 (08:01→16:05)
[2020-01-30] MEDS: RisperiDONE 4 MG TABLET PO SCH ×2 (08:01→16:05)
[2020-01-30] MEDS: MULTIVITAMINS WITH IRON TABLET PO SCH (08:01)
[2020-01-30] MEDS: LORazepam 2 MG TABLET PO PRN ×2 (08:01→12:56)
[2020-01-30 08:03] VITALS: BP 110/66
[2020-01-30] MEDS: HALOPERIDOL 5 MG TABLET PO PRN (12:56)
[2020-01-30 16:28] VITALS: BP 115/76
[2020-01-30] MEDS: BENZTROPINE MESYLATE 1 MG TABLET PO SCH (20:53)
[2020-01-30] MEDS: OLANZapine 7.5 MG TABLET PO SCH (20:53)
[2020-01-30] MEDS: ZOLPIDEM TARTRATE 10 MG TABLET PO PRN (21:33)
[2020-01-31 04:39] VITALS: BP 117/72
[2020-01-31 08:02] VITALS: BP 106/67
[2020-01-31] MEDS: DIVALPROEX SODIUM 500 MG DR TABLET PO SCH ×2 (08:48→16:16)
[2020-01-31] MEDS: RisperiDONE 4 MG TABLET PO SCH ×2 (08:48→16:16)
[2020-01-31] MEDS: MULTIVITAMINS WITH IRON TABLET PO SCH (08:48)
[2020-01-31] MEDS: OMEGA-3/DHA/EPA/FISH OIL 1,000 MG CAPSULE PO SCH (08:48)
[2020-01-31] MEDS: HALOPERIDOL 5 MG TABLET PO PRN (14:42)
[2020-01-31] MEDS: LORazepam 2 MG TABLET PO PRN ×2 (14:42→20:42)
[2020-01-31 20:03] VITALS: BP 109/62
[2020-01-31] MEDS: OLANZapine 7.5 MG TABLET PO SCH (20:41)
[2020-01-31] MEDS: BENZTROPINE MESYLATE 1 MG TABLET PO SCH (20:41)
[2020-02-01 02:20] VITALS: BP 112/67
[2020-02-01] MEDS: OMEGA-3/DHA/EPA/FISH OIL 1,000 MG CAPSULE PO SCH (08:34)
[2020-02-01] MEDS: RisperiDONE 4 MG TABLET PO SCH ×2 (08:35→17:12)
[2020-02-01] MEDS: DIVALPROEX SODIUM 500 MG DR TABLET PO SCH ×2 (08:35→17:12)
[2020-02-01] MEDS: MULTIVITAMINS WITH IRON TABLET PO SCH (08:35)
[2020-02-01 09:31] VITALS: BP 105/66
[2020-02-01 16:13] VITALS: BP 133/75
[2020-02-01] MEDS: OLANZapine 7.5 MG TABLET PO SCH (20:31)
[2020-02-01] MEDS: BENZTROPINE MESYLATE 1 MG TABLET PO SCH (20:31)
[2020-02-01] MEDS: LORazepam 2 MG TABLET PO PRN (22:11)
[2020-02-02 00:27] VITALS: BP 116/69
[2020-02-02] MEDS: MULTIVITAMINS WITH IRON TABLET PO SCH (08:32)
[2020-02-02] MEDS: RisperiDONE 4 MG TABLET PO SCH ×2 (08:32→16:38)
[2020-02-02] MEDS: DIVALPROEX SODIUM 500 MG DR TABLET PO SCH ×2 (08:32→16:38)
[2020-02-02] MEDS: OMEGA-3/DHA/EPA/FISH OIL 1,000 MG CAPSULE PO SCH (08:32)
[2020-02-02] MEDS: LORazepam 2 MG TABLET PO PRN ×2 (12:24→17:26)
[2020-02-02 14:16] VITALS: BP 95/63
[2020-02-02] MEDS: HALOPERIDOL 5 MG TABLET PO PRN (17:26)
[2020-02-02 19:31] VITALS: BP 106/68
[2020-02-02 20:00] VITALS: BP 102/72
[2020-02-02] MEDS: BENZTROPINE MESYLATE 1 MG TABLET PO SCH (20:42)
[2020-02-02] MEDS: OLANZapine 10 MG TABLET PO SCH (20:43)
[2020-02-03 06:52] VITALS: BP 108/71
[2020-02-03 08:02] VITALS: BP 107/64
[2020-02-03] MEDS: RisperiDONE 4 MG TABLET PO SCH ×2 (08:43→16:16)
[2020-02-03] MEDS: DIVALPROEX SODIUM 500 MG DR TABLET PO SCH ×2 (08:44→16:16)
[2020-02-03] MEDS: MULTIVITAMINS WITH IRON TABLET PO SCH (08:44)
[2020-02-03] MEDS: OMEGA-3/DHA/EPA/FISH OIL 1,000 MG CAPSULE PO SCH (08:44)
[2020-02-03] MEDS: LORazepam 2 MG TABLET PO PRN ×2 (16:16→20:06)
[2020-02-03] MEDS: OLANZapine 10 MG TABLET PO SCH (19:51)
[2020-02-03] MEDS: BENZTROPINE MESYLATE 1 MG TABLET PO SCH (19:51)
[2020-02-03] MEDS: HALOPERIDOL 5 MG TABLET PO PRN (20:06)
[2020-02-04] MEDS: OMEGA-3/DHA/EPA/FISH OIL 1,000 MG CAPSULE PO SCH (08:57)
[2020-02-04] MEDS: RisperiDONE 4 MG TABLET PO SCH ×2 (08:57→16:57)
[2020-02-04] MEDS: MULTIVITAMINS WITH IRON TABLET PO SCH (08:57)
[2020-02-04] MEDS: DIVALPROEX SODIUM 500 MG DR TABLET PO SCH ×2 (08:57→16:57)
[2020-02-04 12:22] VITALS: BP 100/60
[2020-02-04 16:18] VITALS: BP 121/72
[2020-02-04] MEDS: BENZTROPINE MESYLATE 1 MG TABLET PO SCH (20:31)
[2020-02-04] MEDS: OLANZapine 10 MG TABLET PO SCH (20:31)
[2020-02-05 01:50] VITALS: BP 110/65
[2020-02-05] MEDS: DIVALPROEX SODIUM 500 MG DR TABLET PO SCH ×2 (09:01→16:06)
[2020-02-05] MEDS: MULTIVITAMINS WITH IRON TABLET PO SCH (09:01)
[2020-02-05] MEDS: OMEGA-3/DHA/EPA/FISH OIL 1,000 MG CAPSULE PO SCH (09:01)
[2020-02-05] MEDS: RisperiDONE 4 MG TABLET PO SCH ×2 (09:01→16:06)
[2020-02-05 09:12] VITALS: BP 131/80
[2020-02-05] MEDS: HALOPERIDOL 5 MG TABLET PO PRN (14:57)
[2020-02-05] MEDS: LORazepam 2 MG TABLET PO PRN (14:57)
[2020-02-05] MEDS: OLANZapine 10 MG TABLET PO SCH (20:29)
[2020-02-05] MEDS: BENZTROPINE MESYLATE 1 MG TABLET PO SCH (20:29)
[2020-02-06 06:47] VITALS: BP 102/63
[2020-02-06] MEDS: DIVALPROEX SODIUM 500 MG DR TABLET PO SCH ×2 (08:08→16:55)
[2020-02-06] MEDS: LORazepam 2 MG TABLET PO PRN ×3 (08:08→20:06)
[2020-02-06] MEDS: RisperiDONE 4 MG TABLET PO SCH ×2 (08:08→16:55)
[2020-02-06] MEDS: HALOPERIDOL 5 MG TABLET PO PRN (08:08)
[2020-02-06] MEDS: OMEGA-3/DHA/EPA/FISH OIL 1,000 MG CAPSULE PO SCH (08:08)
[2020-02-06] MEDS: MULTIVITAMINS WITH IRON TABLET PO SCH (08:08)
[2020-02-06 08:38] VITALS: BP 115/65
[2020-02-06] MEDS: BENZTROPINE MESYLATE 1 MG TABLET PO SCH (20:06)
[2020-02-06] MEDS: HALOPERIDOL 5 MG TABLET PO SCH (20:06)
[2020-02-07 08:14] VITALS: BP 101/65
[2020-02-07] MEDS: DIVALPROEX SODIUM 500 MG DR TABLET PO SCH ×2 (08:35→16:15)
[2020-02-07] MEDS: MULTIVITAMINS WITH IRON TABLET PO SCH (08:35)
[2020-02-07] MEDS: OMEGA-3/DHA/EPA/FISH OIL 1,000 MG CAPSULE PO SCH (08:35)
[2020-02-07] MEDS: RisperiDONE 4 MG TABLET PO SCH ×2 (08:35→16:15)
[2020-02-07] MEDS: HALOPERIDOL 5 MG TABLET PO PRN ×2 (12:16→16:29)
[2020-02-07] MEDS: LORazepam 2 MG TABLET PO PRN ×2 (12:16→16:29)
[2020-02-07 16:31] VITALS: BP 119/74
[2020-02-07 20:00] LABS: COVID AG,FIA SOURCE NASOPHARYNGEAL
[2020-02-07] MEDS: HALOPERIDOL 5 MG TABLET PO SCH (20:32)
[2020-02-07] MEDS: BENZTROPINE MESYLATE 1 MG TABLET PO SCH (20:32)
[2020-02-08 05:39] VITALS: BP 112/64
[2020-02-08 08:25] VITALS: BP 107/68
[2020-02-08] MEDS: OMEGA-3/DHA/EPA/FISH OIL 1,000 MG CAPSULE PO SCH (08:39)
[2020-02-08] MEDS: DIVALPROEX SODIUM 500 MG DR TABLET PO SCH ×2 (08:39→16:11)
[2020-02-08] MEDS: MULTIVITAMINS WITH IRON TABLET PO SCH (08:39)
[2020-02-08] MEDS: RisperiDONE 4 MG TABLET PO SCH ×2 (08:39→16:11)
[2020-02-08] MEDS: LORazepam 2 MG TABLET PO PRN ×2 (10:10→16:11)
[2020-02-08 16:16] VITALS: BP 118/60
[2020-02-08] MEDS: HALOPERIDOL 5 MG TABLET PO SCH (20:20)
[2020-02-08] MEDS: BENZTROPINE MESYLATE 1 MG TABLET PO SCH (20:20)
[2020-02-09 06:20] VITALS: BP 103/62
[2020-02-09] MEDS: LORazepam 2 MG TABLET PO PRN ×2 (08:10→12:38)
[2020-02-09] MEDS: OMEGA-3/DHA/EPA/FISH OIL 1,000 MG CAPSULE PO SCH (08:10)
[2020-02-09] MEDS: DIVALPROEX SODIUM 500 MG DR TABLET PO SCH ×2 (08:10→16:03)
[2020-02-09] MEDS: RisperiDONE 4 MG TABLET PO SCH ×2 (08:10→16:03)
[2020-02-09] MEDS: MULTIVITAMINS WITH IRON TABLET PO SCH (08:10)
[2020-02-09 08:42] VITALS: BP 114/67
[2020-02-09] MEDS: HALOPERIDOL 5 MG TABLET PO PRN (12:38)
[2020-02-09] MEDS: ZOLPIDEM TARTRATE 10 MG TABLET PO PRN (20:26)
[2020-02-09] MEDS: BENZTROPINE MESYLATE 1 MG TABLET PO SCH (20:26)
[2020-02-09] MEDS: HALOPERIDOL 5 MG TABLET PO SCH (20:26)
[2020-02-10 08:40] VITALS: BP 119/69
[2020-02-10] MEDS: RisperiDONE 4 MG TABLET PO SCH ×2 (09:51→16:01)
[2020-02-10] MEDS: DIVALPROEX SODIUM 500 MG DR TABLET PO SCH ×2 (09:51→16:01)
[2020-02-10] MEDS: MULTIVITAMINS WITH IRON TABLET PO SCH (09:51)
[2020-02-10] MEDS: OMEGA-3/DHA/EPA/FISH OIL 1,000 MG CAPSULE PO SCH (09:51)
[2020-02-10] MEDS: HALOPERIDOL 5 MG TABLET PO PRN ×3 (09:52→18:05)
[2020-02-10] MEDS: BENZTROPINE MESYLATE 1 MG TABLET PO SCH (21:12)
[2020-02-10] MEDS: HALOPERIDOL 5 MG TABLET PO SCH (21:12)
[2020-02-11 04:43] VITALS: BP 108/70
[2020-02-11] MEDS: OMEGA-3/DHA/EPA/FISH OIL 1,000 MG CAPSULE PO SCH (08:36)
[2020-02-11] MEDS: MULTIVITAMINS WITH IRON TABLET PO SCH (08:37)
[2020-02-11] MEDS: DIVALPROEX SODIUM 500 MG DR TABLET PO SCH ×2 (08:37→16:08)
[2020-02-11] MEDS: RisperiDONE 4 MG TABLET PO SCH ×2 (08:37→16:08)
[2020-02-11 08:47] VITALS: BP 107/62
[2020-02-11 16:19] VITALS: BP 106/66
[2020-02-11] MEDS: HALOPERIDOL 5 MG TABLET PO PRN (17:48)
[2020-02-11] MEDS: BENZTROPINE MESYLATE 1 MG TABLET PO SCH (21:10)
[2020-02-11] MEDS: HALOPERIDOL 5 MG TABLET PO SCH (21:10)
[2020-02-12 00:55] VITALS: BP 102/67
[2020-02-12] MEDS: DIVALPROEX SODIUM 500 MG DR TABLET PO SCH ×2 (08:32→16:43)
[2020-02-12] MEDS: RisperiDONE 4 MG TABLET PO SCH ×2 (08:32→16:43)
[2020-02-12] MEDS: MULTIVITAMINS WITH IRON TABLET PO SCH (08:32)
[2020-02-12] MEDS: OMEGA-3/DHA/EPA/FISH OIL 1,000 MG CAPSULE PO SCH (08:32)
[2020-02-12 16:29] VITALS: BP 133/77
[2020-02-12] MEDS: LORazepam 2 MG TABLET PO PRN (16:44)
[2020-02-12] MEDS: HALOPERIDOL 5 MG TABLET PO PRN (16:44)
[2020-02-12] MEDS: BENZTROPINE MESYLATE 1 MG TABLET PO SCH (20:55)
[2020-02-12] MEDS: HALOPERIDOL 5 MG TABLET PO SCH (20:55)
[2020-02-13 01:09] VITALS: BP 105/62
[2020-02-13] MEDS: MULTIVITAMINS WITH IRON TABLET PO SCH (08:08)
[2020-02-13] MEDS: OMEGA-3/DHA/EPA/FISH OIL 1,000 MG CAPSULE PO SCH (08:08)
[2020-02-13] MEDS: RisperiDONE 4 MG TABLET PO SCH ×2 (08:08→17:26)
[2020-02-13] MEDS: DIVALPROEX SODIUM 500 MG DR TABLET PO SCH ×2 (08:08→17:26)
[2020-02-13 08:30] VITALS: BP 129/81
[2020-02-13] MEDS: LORazepam 2 MG TABLET PO PRN ×2 (09:22→17:48)
[2020-02-13 16:13] VITALS: BP 112/63
[2020-02-13] MEDS: HALOPERIDOL 5 MG TABLET PO PRN (17:48)
[2020-02-13] MEDS: BENZTROPINE MESYLATE 1 MG TABLET PO SCH (21:07)
[2020-02-13] MEDS: HALOPERIDOL 5 MG TABLET PO SCH (21:07)
[2020-02-14 06:09] VITALS: BP 112/69
[2020-02-14] MEDS: RisperiDONE 4 MG TABLET PO SCH ×2 (08:10→16:17)
[2020-02-14] MEDS: OMEGA-3/DHA/EPA/FISH OIL 1,000 MG CAPSULE PO SCH (08:11)
[2020-02-14] MEDS: MULTIVITAMINS WITH IRON TABLET PO SCH (08:11)
[2020-02-14] MEDS: LORazepam 2 MG TABLET PO PRN ×3 (08:11→20:04)
[2020-02-14] MEDS: DIVALPROEX SODIUM 500 MG DR TABLET PO SCH ×2 (08:11→16:17)
[2020-02-14 08:37] VITALS: BP 107/66
[2020-02-14 16:31] VITALS: BP 112/63
[2020-02-14] MEDS: BENZTROPINE MESYLATE 1 MG TABLET PO SCH (20:04)
[2020-02-14] MEDS: HALOPERIDOL 5 MG TABLET PO SCH (20:04)
[2020-02-15 06:48] VITALS: BP 104/62
[2020-02-15] MEDS: MULTIVITAMINS WITH IRON TABLET PO SCH (08:04)
[2020-02-15] MEDS: DIVALPROEX SODIUM 500 MG DR TABLET PO SCH ×2 (08:04→16:02)
[2020-02-15] MEDS: RisperiDONE 4 MG TABLET PO SCH ×2 (08:04→16:02)
[2020-02-15] MEDS: OMEGA-3/DHA/EPA/FISH OIL 1,000 MG CAPSULE PO SCH (08:04)
[2020-02-15] MEDS: LORazepam 2 MG TABLET PO PRN ×2 (08:05→16:03)
[2020-02-15 08:45] VITALS: BP 111/73
[2020-02-15 16:30] VITALS: BP 108/76
[2020-02-15] MEDS: HALOPERIDOL 5 MG TABLET PO SCH (20:19)
[2020-02-15] MEDS: BENZTROPINE MESYLATE 1 MG TABLET PO SCH (20:19)
[2020-02-16 06:17] VITALS: BP 112/70
[2020-02-16] MEDS: DIVALPROEX SODIUM 500 MG DR TABLET PO SCH ×2 (08:02→15:39)
[2020-02-16] MEDS: LORazepam 2 MG TABLET PO PRN ×2 (08:02→15:20)
[2020-02-16] MEDS: OMEGA-3/DHA/EPA/FISH OIL 1,000 MG CAPSULE PO SCH (08:02)
[2020-02-16] MEDS: RisperiDONE 4 MG TABLET PO SCH ×2 (08:02→15:39)
[2020-02-16] MEDS: MULTIVITAMINS WITH IRON TABLET PO SCH (08:02)
[2020-02-16 08:18] LABS: COVID AG,FIA SOURCE NASOPHARYNGEAL
[2020-02-16 08:22] LABS: ANION GAP 7 mmol/L (8-16); CALCIUM, TOTAL 8.7 mg/dL (8.8-10.5); CARBON DIOXIDE 28 mmol/L (22-29); CHLORIDE 104 mmol/L (98-107); CREATININE 0.93 mg/dL (0.60-1.30); GLOMERULAR FILTR. RATE CALC > 60 mL/min (>60); GLUCOSE,RANDOM 99 mg/dL (70-110); PHOSPHORUS 3.6 mg/dL (2.5-4.9); POTASSIUM 4.2 mmol/L (3.5-5.1); SODIUM SERUM 139 mmol/L (136-145); UREA NITROGEN, BLOOD 15 mg/dL (7-18)
[2020-02-16 08:33] LABS: BASOPHILS % (AUTO) 0.5 % (0.0-2.0); EOSINOPHILS % (AUTO) 2.9 % (1.0-6.0); HEMATOCRIT 40.7 % (41-53); HEMOGLOBIN 13.2 g/dL (13.5-17.5); LYMPHOCYTES % (AUTO) 39.7 % (22.0-44.0); MEAN CORPUSCULAR HGB CONC 32.4 G/dL (31.0-37.0); MEAN CORPUSCULAR VOLUME 83 fL (80-100); MONOCYTES # (AUTO) 0.3 K/uL (0.1-1.0); NEUTROPHILS # (AUTO) 2.5 K/uL (1.8-7.7); NEUTROPHILS % (AUTO) 50.9 % (40.0-70.0); PLATELET COUNT (AUTO) 189 K/uL (150-450); RED CELL DISTRIBUTION WIDTH 13.4 % (11.5-14.5)
[2020-02-16 08:42] VITALS: BP 106/69
[2020-02-16 08:43] LABS: % IRON SATURATION 23.3 % (30-44)
[2020-02-16] MEDS: HALOPERIDOL 5 MG TABLET PO SCH (20:58)
[2020-02-16] MEDS: BENZTROPINE MESYLATE 1 MG TABLET PO SCH (20:58)
[2020-02-17] MEDS: OMEGA-3/DHA/EPA/FISH OIL 1,000 MG CAPSULE PO SCH (08:29)
[2020-02-17] MEDS: DIVALPROEX SODIUM 500 MG DR TABLET PO SCH ×2 (08:29→17:10)
[2020-02-17] MEDS: MULTIVITAMINS WITH IRON TABLET PO SCH (08:29)
[2020-02-17] MEDS: RisperiDONE 4 MG TABLET PO SCH ×2 (08:29→17:32)
[2020-02-17 08:42] VITALS: BP 108/66
[2020-02-17] MEDS: HALOPERIDOL 5 MG TABLET PO PRN (13:10)
[2020-02-17] MEDS: LORazepam 2 MG TABLET PO PRN ×2 (13:10→17:10)
[2020-02-17 16:30] VITALS: BP 115/68
[2020-02-17] MEDS: BENZTROPINE MESYLATE 1 MG TABLET PO SCH (20:44)
[2020-02-17] MEDS: HALOPERIDOL 5 MG TABLET PO SCH (20:45)
[2020-02-18 01:08] VITALS: BP 112/63
[2020-02-18 09:00] VITALS: BP 107/67
[2020-02-18] MEDS: LORazepam 2 MG TABLET PO PRN ×2 (09:00→16:23)
[2020-02-18] MEDS: OMEGA-3/DHA/EPA/FISH OIL 1,000 MG CAPSULE PO SCH (09:00)
[2020-02-18] MEDS: HALOPERIDOL 5 MG TABLET PO PRN ×2 (09:00→16:23)
[2020-02-18] MEDS: DIVALPROEX SODIUM 500 MG DR TABLET PO SCH ×2 (09:00→16:23)
[2020-02-18] MEDS: MULTIVITAMINS WITH IRON TABLET PO SCH (09:00)
[2020-02-18] MEDS: RisperiDONE 4 MG TABLET PO SCH ×2 (09:01→16:23)
[2020-02-18 16:12] VITALS: BP 108/69
[2020-02-18] MEDS: BENZTROPINE MESYLATE 1 MG TABLET PO SCH (20:48)
[2020-02-18] MEDS: HALOPERIDOL 5 MG TABLET PO SCH (20:48)
[2020-02-19 01:09] VITALS: BP 110/67
[2020-02-19 08:20] VITALS: BP 110/70
[2020-02-19] MEDS: RisperiDONE 4 MG TABLET PO SCH ×2 (09:25→17:16)
[2020-02-19] MEDS: MULTIVITAMINS WITH IRON TABLET PO SCH (09:25)
[2020-02-19] MEDS: OMEGA-3/DHA/EPA/FISH OIL 1,000 MG CAPSULE PO SCH (09:25)
[2020-02-19] MEDS: DIVALPROEX SODIUM 500 MG DR TABLET PO SCH ×2 (09:25→17:16)
[2020-02-19] MEDS: LORazepam 2 MG TABLET PO PRN ×2 (09:28→13:41)
[2020-02-19] MEDS: HALOPERIDOL 5 MG TABLET PO PRN ×2 (09:28→17:18)
[2020-02-19 16:15] VITALS: BP 115/71
[2020-02-19] MEDS: BENZTROPINE MESYLATE 1 MG TABLET PO SCH (20:50)
[2020-02-19] MEDS: HALOPERIDOL 5 MG TABLET PO SCH (20:50)
[2020-02-20 06:40] VITALS: BP 108/69
[2020-02-20 08:37] VITALS: BP 110/63
[2020-02-20] MEDS: DIVALPROEX SODIUM 500 MG DR TABLET PO SCH ×2 (10:05→16:11)
[2020-02-20] MEDS: MULTIVITAMINS WITH IRON TABLET PO SCH (10:05)
[2020-02-20] MEDS: OMEGA-3/DHA/EPA/FISH OIL 1,000 MG CAPSULE PO SCH (10:05)
[2020-02-20] MEDS: RisperiDONE 4 MG TABLET PO SCH ×2 (10:05→16:11)
[2020-02-20] MEDS: IBUPROFEN 600 MG TABLET PO PRN ×2 (10:33→17:42)
[2020-02-20 16:31] VITALS: BP 108/71
[2020-02-20] MEDS: BENZTROPINE MESYLATE 1 MG TABLET PO SCH (20:01)
[2020-02-20] MEDS: HALOPERIDOL 5 MG TABLET PO SCH (20:01)
[2020-02-21 06:26] VITALS: BP 110/68
[2020-02-21] MEDS: OMEGA-3/DHA/EPA/FISH OIL 1,000 MG CAPSULE PO SCH (09:28)
[2020-02-21] MEDS: MULTIVITAMINS WITH IRON TABLET PO SCH (09:28)
[2020-02-21] MEDS: DIVALPROEX SODIUM 500 MG DR TABLET PO SCH ×2 (09:29→16:22)
[2020-02-21] MEDS: RisperiDONE 4 MG TABLET PO SCH ×2 (09:29→16:22)
[2020-02-21 11:05] VITALS: BP 126/74
[2020-02-21] MEDS: LORazepam 2 MG TABLET PO PRN ×2 (11:06→16:24)
[2020-02-21] MEDS: IBUPROFEN 600 MG TABLET PO PRN (14:14)
[2020-02-21 16:15] VITALS: BP 110/67
[2020-02-21] MEDS: BENZTROPINE MESYLATE 1 MG TABLET PO SCH (20:49)
[2020-02-21] MEDS: HALOPERIDOL 5 MG TABLET PO SCH (20:49)
[2020-02-22 04:53] VITALS: BP 116/71
[2020-02-22] MEDS: MULTIVITAMINS WITH IRON TABLET PO SCH (08:04)
[2020-02-22] MEDS: DIVALPROEX SODIUM 500 MG DR TABLET PO SCH ×2 (08:04→16:09)
[2020-02-22] MEDS: OMEGA-3/DHA/EPA/FISH OIL 1,000 MG CAPSULE PO SCH (08:04)
[2020-02-22] MEDS: RisperiDONE 4 MG TABLET PO SCH ×2 (08:04→16:09)
[2020-02-22 08:28] VITALS: BP 106/64
[2020-02-22] MEDS: LORazepam 2 MG TABLET PO PRN ×2 (09:08→23:40)
[2020-02-22] MEDS: HALOPERIDOL 5 MG TABLET PO PRN (09:08)
[2020-02-22] MEDS: IBUPROFEN 600 MG TABLET PO PRN ×2 (09:53→17:10)
[2020-02-22 16:24] VITALS: BP 119/65
[2020-02-22] MEDS: HALOPERIDOL 5 MG TABLET PO SCH (20:28)
[2020-02-22] MEDS: BENZTROPINE MESYLATE 1 MG TABLET PO SCH (20:28)
[2020-02-23 01:11] VITALS: BP 102/63
[2020-02-23] MEDS: DIVALPROEX SODIUM 500 MG DR TABLET PO SCH ×2 (08:10→16:21)
[2020-02-23] MEDS: MULTIVITAMINS WITH IRON TABLET PO SCH (08:10)
[2020-02-23] MEDS: LORazepam 2 MG TABLET PO PRN ×2 (08:10→16:21)
[2020-02-23] MEDS: OMEGA-3/DHA/EPA/FISH OIL 1,000 MG CAPSULE PO SCH (08:10)
[2020-02-23] MEDS: RisperiDONE 4 MG TABLET PO SCH ×2 (08:10→16:21)
[2020-02-23 08:45] LABS: COVID AG,FIA SOURCE NASAL SWAB
[2020-02-23 09:08] VITALS: BP 109/67
[2020-02-23] MEDS: IBUPROFEN 600 MG TABLET PO PRN (09:48)
[2020-02-23 16:15] VITALS: BP 127/68
[2020-02-23] MEDS: BENZTROPINE MESYLATE 1 MG TABLET PO SCH (20:45)
[2020-02-23] MEDS: HALOPERIDOL 5 MG TABLET PO SCH (20:46)
[2020-02-24 01:03] VITALS: BP 108/68
[2020-02-24] MEDS: DIVALPROEX SODIUM 500 MG DR TABLET PO SCH ×2 (08:41→17:36)
[2020-02-24] MEDS: MULTIVITAMINS WITH IRON TABLET PO SCH (08:41)
[2020-02-24] MEDS: OMEGA-3/DHA/EPA/FISH OIL 1,000 MG CAPSULE PO SCH (08:41)
[2020-02-24] MEDS: RisperiDONE 4 MG TABLET PO SCH ×2 (08:42→17:36)
[2020-02-24] MEDS: LORazepam 2 MG TABLET PO PRN ×2 (08:44→14:28)
[2020-02-24 08:52] VITALS: BP 100/59
[2020-02-24] MEDS: IBUPROFEN 600 MG TABLET PO PRN (08:56)
[2020-02-24 17:47] VITALS: BP 133/89
[2020-02-24] MEDS: BENZTROPINE MESYLATE 1 MG TABLET PO SCH (20:52)
[2020-02-24] MEDS: HALOPERIDOL 5 MG TABLET PO SCH (20:53)
[2020-02-25] MEDS: OMEGA-3/DHA/EPA/FISH OIL 1,000 MG CAPSULE PO SCH (09:40)
[2020-02-25] MEDS: RisperiDONE 4 MG TABLET PO SCH ×2 (09:41→16:10)
[2020-02-25] MEDS: MULTIVITAMINS WITH IRON TABLET PO SCH (09:41)
[2020-02-25] MEDS: DIVALPROEX SODIUM 500 MG DR TABLET PO SCH ×2 (09:41→16:10)
[2020-02-25] MEDS: LORazepam 2 MG TABLET PO PRN ×2 (12:57→17:47)
[2020-02-25] MEDS: IBUPROFEN 600 MG TABLET PO PRN (16:10)
[2020-02-25 16:28] VITALS: BP 111/58
[2020-02-25] MEDS: BENZTROPINE MESYLATE 1 MG TABLET PO SCH (20:41)
[2020-02-25] MEDS: HALOPERIDOL 5 MG TABLET PO SCH (20:41)
[2020-02-26 05:37] VITALS: BP 106/53
[2020-02-26] MEDS: MULTIVITAMINS WITH IRON TABLET PO SCH (08:33)
[2020-02-26] MEDS: OMEGA-3/DHA/EPA/FISH OIL 1,000 MG CAPSULE PO SCH (08:33)
[2020-02-26] MEDS: DIVALPROEX SODIUM 500 MG DR TABLET PO SCH ×2 (08:33→16:49)
[2020-02-26] MEDS: RisperiDONE 4 MG TABLET PO SCH ×2 (08:33→16:49)
[2020-02-26] MEDS: LORazepam 2 MG TABLET PO PRN ×2 (08:34→17:45)
[2020-02-26 08:50] VITALS: BP 106/66
[2020-02-26] MEDS: IBUPROFEN 600 MG TABLET PO PRN (12:08)
[2020-02-26 16:22] VITALS: BP 115/68
[2020-02-26] MEDS: HALOPERIDOL 5 MG TABLET PO SCH (21:01)
[2020-02-26] MEDS: BENZTROPINE MESYLATE 1 MG TABLET PO SCH (21:01)
[2020-02-27 06:20] VITALS: BP 108/85
[2020-02-27 08:59] VITALS: BP 106/64
[2020-02-27] MEDS: LORazepam 2 MG TABLET PO PRN ×2 (09:02→12:50)
[2020-02-27] MEDS: RisperiDONE 4 MG TABLET PO SCH ×2 (09:02→16:27)
[2020-02-27] MEDS: OMEGA-3/DHA/EPA/FISH OIL 1,000 MG CAPSULE PO SCH (09:02)
[2020-02-27] MEDS: DIVALPROEX SODIUM 500 MG DR TABLET PO SCH ×2 (09:02→15:56)
[2020-02-27] MEDS: MULTIVITAMINS WITH IRON TABLET PO SCH (09:02)
[2020-02-27] MEDS: IBUPROFEN 600 MG TABLET PO PRN (12:50)
[2020-02-27 16:17] VITALS: BP 121/69
[2020-02-27] MEDS: ACETAMINOPHEN 325 MG TABLET PO PRN (16:45)
[2020-02-27] MEDS: HALOPERIDOL 5 MG TABLET PO SCH (20:53)
[2020-02-27] MEDS: BENZTROPINE MESYLATE 1 MG TABLET PO SCH (20:54)
[2020-02-28 08:41] VITALS: BP 104/61
[2020-02-28] MEDS: RisperiDONE 4 MG TABLET PO SCH ×2 (08:54→16:54)
[2020-02-28] MEDS: OMEGA-3/DHA/EPA/FISH OIL 1,000 MG CAPSULE PO SCH (08:54)
[2020-02-28] MEDS: DIVALPROEX SODIUM 500 MG DR TABLET PO SCH ×2 (08:54→16:54)
[2020-02-28] MEDS: LORazepam 2 MG TABLET PO PRN ×2 (08:55→16:54)
[2020-02-28] MEDS: MULTIVITAMINS WITH IRON TABLET PO SCH (08:55)
[2020-02-28] MEDS ORDERED: TUBERCULIN, PURIFIED PROTEIN DERIVATIVE 5 TU/0.1 ML SYRINGE ID ONE (11:30)
[2020-02-28 16:18] VITALS: BP 100/65
[2020-02-28] MEDS: ACETAMINOPHEN 325 MG TABLET PO PRN (16:54)
[2020-02-28] MEDS: BENZTROPINE MESYLATE 1 MG TABLET PO SCH (21:30)
[2020-02-28] MEDS: HALOPERIDOL 5 MG TABLET PO SCH (21:31)
[2020-02-29 06:44] VITALS: BP 109/69
[2020-02-29 08:30] VITALS: BP 108/55
[2020-02-29] MEDS: DIVALPROEX SODIUM 500 MG DR TABLET PO SCH ×2 (09:45→17:16)
[2020-02-29] MEDS: OMEGA-3/DHA/EPA/FISH OIL 1,000 MG CAPSULE PO SCH (09:46)
[2020-02-29] MEDS: RisperiDONE 4 MG TABLET PO SCH ×2 (09:46→17:16)
[2020-02-29] MEDS: MULTIVITAMINS WITH IRON TABLET PO SCH (09:46)
[2020-02-29] MEDS: LORazepam 2 MG TABLET PO PRN ×2 (09:48→17:16)
[2020-02-29 13:43] VITALS: BP 116/61
[2020-02-29] MEDS: IBUPROFEN 600 MG TABLET PO PRN (13:49)
[2020-02-29 16:22] VITALS: BP 114/60
[2020-02-29] MEDS: BENZTROPINE MESYLATE 1 MG TABLET PO SCH (20:44)
[2020-02-29] MEDS: HALOPERIDOL 5 MG TABLET PO SCH (20:44)
[2020-03-01 06:19] VITALS: BP 110/70
[2020-03-01 07:19] LABS: COVID AG,FIA SOURCE NASOPHARYNGEAL
[2020-03-01] MEDS: RisperiDONE 4 MG TABLET PO SCH ×2 (10:14→16:00)
[2020-03-01] MEDS: DIVALPROEX SODIUM 500 MG DR TABLET PO SCH ×2 (10:14→16:01)
[2020-03-01] MEDS: LORazepam 2 MG TABLET PO PRN ×2 (10:14→16:01)
[2020-03-01] MEDS: OMEGA-3/DHA/EPA/FISH OIL 1,000 MG CAPSULE PO SCH (10:14)
[2020-03-01] MEDS: MULTIVITAMINS WITH IRON TABLET PO SCH (10:14)
[2020-03-01] MEDS: IBUPROFEN 600 MG TABLET PO PRN (16:01)
[2020-03-01 16:35] VITALS: BP 120/60
[2020-03-01] MEDS: HALOPERIDOL 5 MG TABLET PO SCH (20:55)
[2020-03-01] MEDS: BENZTROPINE MESYLATE 1 MG TABLET PO SCH (20:56)
[2020-03-02] MEDS: DIVALPROEX SODIUM 500 MG DR TABLET PO SCH ×2 (08:24→16:11)
[2020-03-02] MEDS: OMEGA-3/DHA/EPA/FISH OIL 1,000 MG CAPSULE PO SCH (08:24)
[2020-03-02] MEDS: MULTIVITAMINS WITH IRON TABLET PO SCH (08:24)
[2020-03-02] MEDS: RisperiDONE 4 MG TABLET PO SCH ×2 (08:25→16:11)
[2020-03-02] MEDS: LORazepam 2 MG TABLET PO PRN ×2 (08:25→13:42)
[2020-03-02 08:50] VITALS: BP 106/67
[2020-03-02] MEDS: IBUPROFEN 600 MG TABLET PO PRN ×2 (13:10→16:10)
[2020-03-02 16:15] VITALS: BP 109/63
[2020-03-02] MEDS: HALOPERIDOL 5 MG TABLET PO PRN (16:29)
[2020-03-02] MEDS: BENZTROPINE MESYLATE 1 MG TABLET PO SCH (21:23)
[2020-03-02] MEDS: HALOPERIDOL 5 MG TABLET PO SCH (21:24)
[2020-03-03 01:07] VITALS: BP 111/65
[2020-03-03] MEDS: OMEGA-3/DHA/EPA/FISH OIL 1,000 MG CAPSULE PO SCH (08:48)
[2020-03-03] MEDS: RisperiDONE 4 MG TABLET PO SCH ×2 (08:48→17:10)
[2020-03-03] MEDS: MULTIVITAMINS WITH IRON TABLET PO SCH (08:48)
[2020-03-03] MEDS: DIVALPROEX SODIUM 500 MG DR TABLET PO SCH ×2 (08:48→17:10)
[2020-03-03] MEDS: LORazepam 2 MG TABLET PO PRN ×2 (08:56→17:13)
[2020-03-03 09:00] VITALS: BP 106/68
[2020-03-03 16:23] VITALS: BP 108/70
[2020-03-03] MEDS: IBUPROFEN 600 MG TABLET PO PRN (17:14)
[2020-03-03] MEDS: BENZTROPINE MESYLATE 1 MG TABLET PO SCH (20:40)
[2020-03-03] MEDS: HALOPERIDOL 5 MG TABLET PO SCH (20:40)
[2020-03-04 01:52] VITALS: BP 112/68
[2020-03-04 08:27] VITALS: BP 105/74
[2020-03-04] MEDS: DIVALPROEX SODIUM 500 MG DR TABLET PO SCH ×2 (09:56→16:09)
[2020-03-04] MEDS: MULTIVITAMINS WITH IRON TABLET PO SCH (09:57)
[2020-03-04] MEDS: LORazepam 2 MG TABLET PO PRN ×2 (09:57→16:14)
[2020-03-04] MEDS: OMEGA-3/DHA/EPA/FISH OIL 1,000 MG CAPSULE PO SCH (09:57)
[2020-03-04] MEDS: RisperiDONE 4 MG TABLET PO SCH ×2 (09:57→16:09)
[2020-03-04] MEDS: IBUPROFEN 600 MG TABLET PO PRN (16:14)
[2020-03-04 16:35] VITALS: BP 100/60
[2020-03-04] MEDS: BENZTROPINE MESYLATE 1 MG TABLET PO SCH (21:14)
[2020-03-04] MEDS: HALOPERIDOL 5 MG TABLET PO SCH (21:14)
[2020-03-05 00:33] VITALS: BP 108/60
[2020-03-05] MEDS: LORazepam 2 MG TABLET PO PRN ×2 (08:12→18:26)
[2020-03-05] MEDS: DIVALPROEX SODIUM 500 MG DR TABLET PO SCH ×2 (08:12→16:31)
[2020-03-05] MEDS: MULTIVITAMINS WITH IRON TABLET PO SCH (08:12)
[2020-03-05] MEDS: OMEGA-3/DHA/EPA/FISH OIL 1,000 MG CAPSULE PO SCH (08:12)
[2020-03-05] MEDS: RisperiDONE 4 MG TABLET PO SCH ×2 (08:12→16:31)
[2020-03-05 16:36] VITALS: BP 110/67
[2020-03-05] MEDS: IBUPROFEN 600 MG TABLET PO PRN (18:25)
[2020-03-05] MEDS: HALOPERIDOL 5 MG TABLET PO SCH (20:28)
[2020-03-05] MEDS: BENZTROPINE MESYLATE 1 MG TABLET PO SCH (20:28)
[2020-03-06] MEDS: OMEGA-3/DHA/EPA/FISH OIL 1,000 MG CAPSULE PO SCH (08:17)
[2020-03-06] MEDS: MULTIVITAMINS WITH IRON TABLET PO SCH (08:17)
[2020-03-06] MEDS: DIVALPROEX SODIUM 500 MG DR TABLET PO SCH ×2 (08:17→16:02)
[2020-03-06] MEDS: RisperiDONE 4 MG TABLET PO SCH ×2 (08:17→16:02)
[2020-03-06 08:55] VITALS: BP 104/68
[2020-03-06] MEDS: LORazepam 2 MG TABLET PO PRN ×2 (16:02→20:45)
[2020-03-06 16:26] VITALS: BP 111/66
[2020-03-06] MEDS: IBUPROFEN 600 MG TABLET PO PRN (17:13)
[2020-03-06] MEDS: HALOPERIDOL 5 MG TABLET PO SCH (19:59)
[2020-03-06] MEDS: BENZTROPINE MESYLATE 1 MG TABLET PO SCH (20:00)
[2020-03-07 05:29] VITALS: BP 117/71
[2020-03-07] MEDS: OMEGA-3/DHA/EPA/FISH OIL 1,000 MG CAPSULE PO SCH (08:49)
[2020-03-07] MEDS: MULTIVITAMINS WITH IRON TABLET PO SCH (08:49)
[2020-03-07] MEDS: DIVALPROEX SODIUM 500 MG DR TABLET PO SCH ×2 (08:49→16:10)
[2020-03-07] MEDS: RisperiDONE 4 MG TABLET PO SCH ×2 (08:49→16:10)
[2020-03-07] MEDS: LORazepam 2 MG TABLET PO PRN (16:10)
[2020-03-07] MEDS: IBUPROFEN 600 MG TABLET PO PRN (16:10)
[2020-03-07 16:14] VITALS: BP 130/73
[2020-03-07] MEDS: BENZTROPINE MESYLATE 1 MG TABLET PO SCH (20:30)
[2020-03-07] MEDS: HALOPERIDOL 5 MG TABLET PO SCH (20:30)
[2020-03-08] MEDS: RisperiDONE 4 MG TABLET PO SCH ×2 (08:11→16:17)
[2020-03-08] MEDS: OMEGA-3/DHA/EPA/FISH OIL 1,000 MG CAPSULE PO SCH (08:11)
[2020-03-08] MEDS: DIVALPROEX SODIUM 500 MG DR TABLET PO SCH ×2 (08:11→16:17)
[2020-03-08] MEDS: LORazepam 2 MG TABLET PO PRN ×2 (08:11→20:01)
[2020-03-08] MEDS: MULTIVITAMINS WITH IRON TABLET PO SCH (08:11)
[2020-03-08 08:34] VITALS: BP 122/64
[2020-03-08] MEDS: ACETAMINOPHEN 325 MG TABLET PO PRN ×2 (12:11→16:17)
[2020-03-08 14:28] LABS: COVID AG,FIA SOURCE NASAL SWAB
[2020-03-08 16:11] VITALS: BP 127/69
[2020-03-08] MEDS: BENZTROPINE MESYLATE 1 MG TABLET PO SCH (20:00)
[2020-03-08] MEDS: HALOPERIDOL 5 MG TABLET PO SCH (20:01)
[2020-03-08] MEDS: ZOLPIDEM TARTRATE 10 MG TABLET PO PRN (20:01)
[2020-03-09 00:37] VITALS: BP 119/72
[2020-03-09 08:16] VITALS: BP 106/69
[2020-03-09] MEDS: DIVALPROEX SODIUM 500 MG DR TABLET PO SCH ×2 (09:22→16:09)
[2020-03-09] MEDS: OMEGA-3/DHA/EPA/FISH OIL 1,000 MG CAPSULE PO SCH (09:22)
[2020-03-09] MEDS: RisperiDONE 4 MG TABLET PO SCH ×2 (09:22→16:08)
[2020-03-09] MEDS: MULTIVITAMINS WITH IRON TABLET PO SCH (09:22)
[2020-03-09] MEDS: LORazepam 2 MG TABLET PO PRN (15:35)
[2020-03-09] MEDS: ACETAMINOPHEN 325 MG TABLET PO PRN (15:35)
[2020-03-09 16:27] VITALS: BP 105/65
[2020-03-09] MEDS: HALOPERIDOL 5 MG TABLET PO PRN (16:37)
[2020-03-09] MEDS: BENZTROPINE MESYLATE 1 MG TABLET PO SCH (20:36)
[2020-03-09] MEDS: HALOPERIDOL 5 MG TABLET PO SCH (20:36)
[2020-03-10 05:43] VITALS: BP 109/71
[2020-03-10] MEDS: OMEGA-3/DHA/EPA/FISH OIL 1,000 MG CAPSULE PO SCH (08:04)
[2020-03-10] MEDS: DIVALPROEX SODIUM 500 MG DR TABLET PO SCH ×2 (08:04→15:43)
[2020-03-10] MEDS: RisperiDONE 4 MG TABLET PO SCH ×2 (08:04→15:43)
[2020-03-10] MEDS: MULTIVITAMINS WITH IRON TABLET PO SCH (08:04)
[2020-03-10] MEDS: LORazepam 2 MG TABLET PO PRN ×2 (08:04→17:14)
[2020-03-10 08:47] VITALS: BP 111/70
[2020-03-10] MEDS: HALOPERIDOL 5 MG TABLET PO PRN ×2 (10:46→15:44)
[2020-03-10] MEDS: IBUPROFEN 600 MG TABLET PO PRN (10:47)
[2020-03-10] MEDS: ACETAMINOPHEN 325 MG TABLET PO PRN (15:43)
[2020-03-10 16:34] VITALS: BP 110/60
[2020-03-10] MEDS: HALOPERIDOL 5 MG TABLET PO SCH (20:28)
[2020-03-10] MEDS: BENZTROPINE MESYLATE 1 MG TABLET PO SCH (20:28)
[2020-03-11 06:03] VITALS: BP 102/71
[2020-03-11] MEDS: IBUPROFEN 600 MG TABLET PO PRN ×2 (06:05→16:58)
[2020-03-11] MEDS: LORazepam 2 MG TABLET PO PRN ×3 (06:05→18:48)
[2020-03-11] MEDS: HALOPERIDOL 5 MG TABLET PO PRN (06:43)
[2020-03-11] MEDS: DIVALPROEX SODIUM 500 MG DR TABLET PO SCH ×2 (08:17→16:58)
[2020-03-11] MEDS: RisperiDONE 4 MG TABLET PO SCH ×2 (08:18→16:58)
[2020-03-11] MEDS: OMEGA-3/DHA/EPA/FISH OIL 1,000 MG CAPSULE PO SCH (08:18)
[2020-03-11] MEDS: MULTIVITAMINS WITH IRON TABLET PO SCH (08:18)
[2020-03-11 08:35] VITALS: BP 106/62
[2020-03-11 10:00] LABS: APPEARANCE,URINE TURBID (CLEAR); BILIRUBIN,URINE NEGATIVE (NEGATIVE); GLUCOSE, URINE (UA) NEGATIVE (NEGATIVE); KETONES,URINE NEGATIVE (NEGATIVE); LEUKOCYTE ESTERASE ,URINE NEGATIVE (NEGATIVE); NITRATE,URINE NEGATIVE (NEGATIVE); OCCULT BLOOD,URINE NEGATIVE (NEGATIVE); PROTEIN,URINE NEGATIVE (NEGATIVE); UROBILINOGEN,URINE 0.2 mg/dL (<=1.0)
[2020-03-11 16:55] VITALS: BP 115/68
[2020-03-11 17:22] VITALS: BP 115/68
[2020-03-11] MEDS: BENZTROPINE MESYLATE 1 MG TABLET PO SCH (20:41)
[2020-03-11] MEDS: HALOPERIDOL 5 MG TABLET PO SCH (20:41)
[2020-03-12 00:55] VITALS: BP 103/67
[2020-03-12] MEDS: MULTIVITAMINS WITH IRON TABLET PO SCH (08:43)
[2020-03-12] MEDS: OMEGA-3/DHA/EPA/FISH OIL 1,000 MG CAPSULE PO SCH (08:43)
[2020-03-12] MEDS: RisperiDONE 4 MG TABLET PO SCH ×2 (08:43→16:30)
[2020-03-12] MEDS: DIVALPROEX SODIUM 500 MG DR TABLET PO SCH ×2 (08:44→16:30)
[2020-03-12] MEDS: LORazepam 2 MG TABLET PO PRN ×2 (08:44→17:51)
[2020-03-12] MEDS: IBUPROFEN 600 MG TABLET PO PRN (09:50)
[2020-03-12] MEDS: HALOPERIDOL 5 MG TABLET PO PRN ×2 (10:13→18:49)
[2020-03-12 16:42] VITALS: BP 111/64
[2020-03-12] MEDS: HALOPERIDOL 5 MG TABLET PO SCH (20:44)
[2020-03-12] MEDS: BENZTROPINE MESYLATE 1 MG TABLET PO SCH (20:44)
[2020-03-13 08:19] VITALS: BP 113/48
[2020-03-13] MEDS: DIVALPROEX SODIUM 500 MG DR TABLET PO SCH ×2 (08:52→16:04)
[2020-03-13] MEDS: MULTIVITAMINS WITH IRON TABLET PO SCH (08:52)
[2020-03-13] MEDS: OMEGA-3/DHA/EPA/FISH OIL 1,000 MG CAPSULE PO SCH (08:52)
[2020-03-13] MEDS: RisperiDONE 4 MG TABLET PO SCH ×2 (08:52→16:04)
[2020-03-13 09:20] VITALS: BP 110/70
[2020-03-13] MEDS: LORazepam 2 MG TABLET PO PRN ×2 (10:39→16:04)
[2020-03-13] MEDS: IBUPROFEN 600 MG TABLET PO PRN (16:08)
[2020-03-13 16:40] VITALS: BP 123/71
[2020-03-13] MEDS: HALOPERIDOL 5 MG TABLET PO SCH (20:27)
[2020-03-13] MEDS: BENZTROPINE MESYLATE 1 MG TABLET PO SCH (20:27)
[2020-03-14 00:59] VITALS: BP 104/62
[2020-03-14] MEDS: ZOLPIDEM TARTRATE 10 MG TABLET PO PRN ×2 (01:05→20:37)
[2020-03-14] MEDS: OMEGA-3/DHA/EPA/FISH OIL 1,000 MG CAPSULE PO SCH (08:05)
[2020-03-14] MEDS: DIVALPROEX SODIUM 500 MG DR TABLET PO SCH ×2 (08:05→16:05)
[2020-03-14] MEDS: MULTIVITAMINS WITH IRON TABLET PO SCH (08:06)
[2020-03-14] MEDS: LORazepam 2 MG TABLET PO PRN ×2 (08:06→12:52)
[2020-03-14] MEDS: RisperiDONE 4 MG TABLET PO SCH ×2 (08:06→16:06)
[2020-03-14] MEDS: IBUPROFEN 600 MG TABLET PO PRN (12:53)
[2020-03-14] MEDS: HALOPERIDOL 5 MG TABLET PO PRN (15:11)
[2020-03-14 16:39] VITALS: BP 106/59
[2020-03-14] MEDS: BENZTROPINE MESYLATE 1 MG TABLET PO SCH (20:01)
[2020-03-14] MEDS: HALOPERIDOL 5 MG TABLET PO SCH (20:01)
[2020-03-15 08:18] LABS: COVID AG,FIA SOURCE NASOPHARYNGEAL
[2020-03-15] MEDS: DIVALPROEX SODIUM 500 MG DR TABLET PO SCH ×2 (08:22→17:43)
[2020-03-15] MEDS: RisperiDONE 4 MG TABLET PO SCH ×2 (08:22→17:43)
[2020-03-15] MEDS: OMEGA-3/DHA/EPA/FISH OIL 1,000 MG CAPSULE PO SCH (08:22)
[2020-03-15] MEDS: MULTIVITAMINS WITH IRON TABLET PO SCH (08:22)
[2020-03-15] MEDS: LORazepam 2 MG TABLET PO PRN ×2 (08:22→16:37)
[2020-03-15] MEDS: HALOPERIDOL 5 MG TABLET PO PRN (08:23)
[2020-03-15 08:47] VITALS: BP 106/64
[2020-03-15 16:25] VITALS: BP 111/66
[2020-03-15] MEDS: ZOLPIDEM TARTRATE 10 MG TABLET PO PRN (20:13)
[2020-03-15] MEDS: BENZTROPINE MESYLATE 1 MG TABLET PO SCH (20:13)
[2020-03-15] MEDS: HALOPERIDOL 5 MG TABLET PO SCH (20:13)
[2020-03-16 06:12] VITALS: BP 101/57
[2020-03-16] MEDS: RisperiDONE 4 MG TABLET PO SCH ×2 (08:31→16:00)
[2020-03-16] MEDS: DIVALPROEX SODIUM 500 MG DR TABLET PO SCH ×2 (08:31→16:00)
[2020-03-16] MEDS: OMEGA-3/DHA/EPA/FISH OIL 1,000 MG CAPSULE PO SCH (08:31)
[2020-03-16] MEDS: MULTIVITAMINS WITH IRON TABLET PO SCH (08:31)
[2020-03-16] MEDS: LORazepam 2 MG TABLET PO PRN ×2 (08:31→16:00)
[2020-03-16 16:35] VITALS: BP 126/65
[2020-03-16] MEDS: HALOPERIDOL 5 MG TABLET PO SCH (20:10)
[2020-03-16] MEDS: BENZTROPINE MESYLATE 1 MG TABLET PO SCH (20:10)
[2020-03-17 00:39] VITALS: BP 108/67
[2020-03-17] MEDS: LORazepam 2 MG TABLET PO PRN ×2 (08:15→17:11)
[2020-03-17] MEDS: OMEGA-3/DHA/EPA/FISH OIL 1,000 MG CAPSULE PO SCH (08:16)
[2020-03-17] MEDS: RisperiDONE 4 MG TABLET PO SCH ×2 (08:16→16:22)
[2020-03-17] MEDS: DIVALPROEX SODIUM 500 MG DR TABLET PO SCH ×2 (08:16→16:22)
[2020-03-17] MEDS: MULTIVITAMINS WITH IRON TABLET PO SCH (08:16)
[2020-03-17 08:29] VITALS: BP 105/63
[2020-03-17 17:26] VITALS: BP 114/72
[2020-03-17] MEDS: BENZTROPINE MESYLATE 1 MG TABLET PO SCH (20:18)
[2020-03-17] MEDS: HALOPERIDOL 5 MG TABLET PO SCH (20:23)
[2020-03-17] MEDS: ZOLPIDEM TARTRATE 10 MG TABLET PO PRN (20:29)
[2020-03-18] MEDS: OMEGA-3/DHA/EPA/FISH OIL 1,000 MG CAPSULE PO SCH (08:16)
[2020-03-18] MEDS: LORazepam 2 MG TABLET PO PRN ×2 (08:16→16:07)
[2020-03-18] MEDS: DIVALPROEX SODIUM 500 MG DR TABLET PO SCH ×2 (08:16→16:03)
[2020-03-18] MEDS: MULTIVITAMINS WITH IRON TABLET PO SCH (08:16)
[2020-03-18] MEDS: RisperiDONE 4 MG TABLET PO SCH ×2 (08:16→16:08)
[2020-03-18 09:39] VITALS: BP 111/60
[2020-03-18] MEDS: BENZTROPINE MESYLATE 1 MG TABLET PO SCH (20:23)
[2020-03-18] MEDS: HALOPERIDOL 5 MG TABLET PO SCH (20:23)
[2020-03-19 02:11] VITALS: BP 110/68
[2020-03-19] MEDS: ZOLPIDEM TARTRATE 10 MG TABLET PO PRN (02:12)
[2020-03-19] MEDS: OMEGA-3/DHA/EPA/FISH OIL 1,000 MG CAPSULE PO SCH (08:34)
[2020-03-19] MEDS: LORazepam 2 MG TABLET PO PRN ×2 (08:34→16:02)
[2020-03-19] MEDS: DIVALPROEX SODIUM 500 MG DR TABLET PO SCH ×2 (08:34→16:02)
[2020-03-19] MEDS: RisperiDONE 4 MG TABLET PO SCH ×2 (08:34→16:02)
[2020-03-19] MEDS: MULTIVITAMINS WITH IRON TABLET PO SCH (08:34)
[2020-03-19 17:05] VITALS: BP 117/66
[2020-03-19] MEDS: HALOPERIDOL 5 MG TABLET PO SCH (20:20)
[2020-03-19] MEDS: BENZTROPINE MESYLATE 1 MG TABLET PO SCH (20:20)
[2020-03-20 00:50] VITALS: BP 109/62
[2020-03-20] MEDS: ZOLPIDEM TARTRATE 10 MG TABLET PO PRN (01:20)
[2020-03-20] MEDS: DIVALPROEX SODIUM 500 MG DR TABLET PO SCH ×2 (08:17→16:03)
[2020-03-20] MEDS: MULTIVITAMINS WITH IRON TABLET PO SCH (08:17)
[2020-03-20] MEDS: OMEGA-3/DHA/EPA/FISH OIL 1,000 MG CAPSULE PO SCH (08:17)
[2020-03-20] MEDS: LORazepam 2 MG TABLET PO PRN ×2 (08:17→16:03)
[2020-03-20] MEDS: RisperiDONE 4 MG TABLET PO SCH ×2 (08:17→16:03)
[2020-03-20 08:54] VITALS: BP 112/65
[2020-03-20] MEDS: HALOPERIDOL 5 MG TABLET PO SCH (20:08)
[2020-03-20] MEDS: BENZTROPINE MESYLATE 1 MG TABLET PO SCH (20:08)
[2020-03-21 00:06] VITALS: BP 113/66
[2020-03-21] MEDS: ZOLPIDEM TARTRATE 10 MG TABLET PO PRN (00:07)
[2020-03-21] MEDS: DIVALPROEX SODIUM 500 MG DR TABLET PO SCH ×2 (08:32→16:38)
[2020-03-21] MEDS: LORazepam 2 MG TABLET PO PRN ×2 (08:32→16:38)
[2020-03-21] MEDS: RisperiDONE 4 MG TABLET PO SCH ×2 (08:32→16:38)
[2020-03-21] MEDS: MULTIVITAMINS WITH IRON TABLET PO SCH (08:32)
[2020-03-21] MEDS: OMEGA-3/DHA/EPA/FISH OIL 1,000 MG CAPSULE PO SCH (08:32)
[2020-03-21 16:25] VITALS: BP 113/66
[2020-03-21] MEDS: HALOPERIDOL 5 MG TABLET PO SCH (20:15)
[2020-03-21] MEDS: BENZTROPINE MESYLATE 1 MG TABLET PO SCH (20:15)
[2020-03-22 05:24] VITALS: BP 109/63
[2020-03-22 07:49] LABS: COVID AG,FIA SOURCE NASOPHARYNGEAL
[2020-03-22] MEDS: OMEGA-3/DHA/EPA/FISH OIL 1,000 MG CAPSULE PO SCH (08:37)
[2020-03-22] MEDS: DIVALPROEX SODIUM 500 MG DR TABLET PO SCH ×2 (08:37→16:07)
[2020-03-22] MEDS: MULTIVITAMINS WITH IRON TABLET PO SCH (08:37)
[2020-03-22 08:38] VITALS: BP 107/68
[2020-03-22] MEDS: RisperiDONE 4 MG TABLET PO SCH ×2 (08:38→16:07)
[2020-03-22] MEDS: LORazepam 2 MG TABLET PO PRN ×2 (08:38→13:26)
[2020-03-22] MEDS: IBUPROFEN 600 MG TABLET PO PRN (13:27)
[2020-03-22 16:32] VITALS: BP 112/60
[2020-03-22] MEDS: HALOPERIDOL 5 MG TABLET PO SCH (20:15)
[2020-03-22] MEDS: BENZTROPINE MESYLATE 1 MG TABLET PO SCH (20:15)
[2020-03-23] MEDS: ZOLPIDEM TARTRATE 10 MG TABLET PO PRN (00:52)
[2020-03-23 01:30] VITALS: BP 108/68
[2020-03-23] MEDS: DIVALPROEX SODIUM 500 MG DR TABLET PO SCH ×2 (08:41→16:44)
[2020-03-23] MEDS: RisperiDONE 4 MG TABLET PO SCH ×2 (08:41→16:44)
[2020-03-23] MEDS: OMEGA-3/DHA/EPA/FISH OIL 1,000 MG CAPSULE PO SCH (08:41)
[2020-03-23] MEDS: LORazepam 2 MG TABLET PO PRN ×2 (08:41→14:44)
[2020-03-23] MEDS: MULTIVITAMINS WITH IRON TABLET PO SCH (08:41)
[2020-03-23 09:08] VITALS: BP 105/68
[2020-03-23] MEDS: IBUPROFEN 600 MG TABLET PO PRN (14:44)
[2020-03-23 16:26] VITALS: BP 102/65
[2020-03-23] MEDS: HALOPERIDOL 5 MG TABLET PO SCH (20:44)
[2020-03-23] MEDS: BENZTROPINE MESYLATE 1 MG TABLET PO SCH (20:44)
[2020-03-24 01:40] VITALS: BP 117/79
[2020-03-24] MEDS: ZOLPIDEM TARTRATE 10 MG TABLET PO PRN (01:43)
[2020-03-24] MEDS: RisperiDONE 4 MG TABLET PO SCH ×2 (08:03→17:26)
[2020-03-24] MEDS: DIVALPROEX SODIUM 500 MG DR TABLET PO SCH ×2 (08:03→17:26)
[2020-03-24] MEDS: LORazepam 2 MG TABLET PO PRN ×2 (08:03→19:23)
[2020-03-24] MEDS: MULTIVITAMINS WITH IRON TABLET PO SCH (08:03)
[2020-03-24] MEDS: OMEGA-3/DHA/EPA/FISH OIL 1,000 MG CAPSULE PO SCH (08:03)
[2020-03-24 08:42] VITALS: BP 106/65
[2020-03-24] MEDS ORDERED: RisperiDONE MICROSPHERES 50 MG/2 ML SYRINGE IM ONE (16:00)
[2020-03-24 17:55] VITALS: BP 105/66
[2020-03-24] MEDS: HALOPERIDOL 5 MG TABLET PO SCH (20:01)
[2020-03-24] MEDS: BENZTROPINE MESYLATE 1 MG TABLET PO SCH (20:01)
[2020-03-25 01:26] VITALS: BP 110/65
[2020-03-25 04:44] VITALS: BP 110/70
[2020-03-25] MEDS: LORazepam 2 MG TABLET PO PRN ×2 (04:52→16:44)
[2020-03-25] MEDS: RisperiDONE 4 MG TABLET PO SCH ×2 (08:46→16:19)
[2020-03-25] MEDS: OMEGA-3/DHA/EPA/FISH OIL 1,000 MG CAPSULE PO SCH (08:46)
[2020-03-25] MEDS: DIVALPROEX SODIUM 500 MG DR TABLET PO SCH ×2 (08:46→17:32)
[2020-03-25] MEDS: MULTIVITAMINS WITH IRON TABLET PO SCH (08:46)
[2020-03-25 09:06] VITALS: BP 136/81
[2020-03-25 16:31] VITALS: BP 121/90
[2020-03-25] MEDS: IBUPROFEN 600 MG TABLET PO PRN (17:53)
[2020-03-25] MEDS: BENZTROPINE MESYLATE 1 MG TABLET PO SCH (21:43)
[2020-03-25] MEDS: HALOPERIDOL 5 MG TABLET PO SCH (21:47)
[2020-03-26] MEDS: ZOLPIDEM TARTRATE 10 MG TABLET PO PRN (02:47)
[2020-03-26 02:56] VITALS: BP 126/72
[2020-03-26 08:30] VITALS: BP 104/50
[2020-03-26] MEDS: MULTIVITAMINS WITH IRON TABLET PO SCH (08:40)
[2020-03-26] MEDS: RisperiDONE 4 MG TABLET PO SCH ×2 (08:40→16:03)
[2020-03-26] MEDS: DIVALPROEX SODIUM 500 MG DR TABLET PO SCH ×2 (08:40→16:03)
[2020-03-26] MEDS: OMEGA-3/DHA/EPA/FISH OIL 1,000 MG CAPSULE PO SCH (08:40)
[2020-03-26] MEDS: LORazepam 2 MG TABLET PO PRN (15:44)
[2020-03-26] MEDS: IBUPROFEN 600 MG TABLET PO PRN (16:03)
[2020-03-26 16:47] VITALS: BP 107/73
[2020-03-26] MEDS: BENZTROPINE MESYLATE 1 MG TABLET PO SCH (20:27)
[2020-03-26] MEDS: HALOPERIDOL 5 MG TABLET PO SCH (20:27)
[2020-03-27 00:28] VITALS: BP 105/60
[2020-03-27 00:29] VITALS: BP 118/77
[2020-03-27] MEDS: ZOLPIDEM TARTRATE 10 MG TABLET PO PRN (00:31)
[2020-03-27] MEDS: RisperiDONE 4 MG TABLET PO SCH ×2 (08:22→16:12)
[2020-03-27] MEDS: LORazepam 2 MG TABLET PO PRN ×2 (08:22→16:12)
[2020-03-27] MEDS: MULTIVITAMINS WITH IRON TABLET PO SCH (08:22)
[2020-03-27] MEDS: OMEGA-3/DHA/EPA/FISH OIL 1,000 MG CAPSULE PO SCH (08:22)
[2020-03-27] MEDS: DIVALPROEX SODIUM 500 MG DR TABLET PO SCH ×2 (08:22→16:11)
[2020-03-27] MEDS: IBUPROFEN 600 MG TABLET PO PRN (16:12)
[2020-03-27 16:27] VITALS: BP 117/64
[2020-03-27] MEDS: BENZTROPINE MESYLATE 1 MG TABLET PO SCH (20:11)
[2020-03-27] MEDS: HALOPERIDOL 5 MG TABLET PO SCH (20:12)
[2020-03-28] MEDS: OMEGA-3/DHA/EPA/FISH OIL 1,000 MG CAPSULE PO SCH (08:35)
[2020-03-28] MEDS: MULTIVITAMINS WITH IRON TABLET PO SCH (08:35)
[2020-03-28] MEDS: DIVALPROEX SODIUM 500 MG DR TABLET PO SCH ×2 (08:35→16:03)
[2020-03-28] MEDS: RisperiDONE 4 MG TABLET PO SCH ×2 (08:35→16:03)
[2020-03-28 08:36] VITALS: BP 106/61
[2020-03-28] MEDS: LORazepam 2 MG TABLET PO PRN (16:03)
[2020-03-28 16:36] VITALS: BP 118/68
[2020-03-28] MEDS: BENZTROPINE MESYLATE 1 MG TABLET PO SCH (20:17)
[2020-03-28] MEDS: HALOPERIDOL 5 MG TABLET PO SCH (20:17)
[2020-03-29 01:41] VITALS: BP 107/65
[2020-03-29] MEDS: ZOLPIDEM TARTRATE 10 MG TABLET PO PRN (01:42)
[2020-03-29] MEDS: OMEGA-3/DHA/EPA/FISH OIL 1,000 MG CAPSULE PO SCH (08:07)
[2020-03-29] MEDS: MULTIVITAMINS WITH IRON TABLET PO SCH (08:07)
[2020-03-29] MEDS: RisperiDONE 4 MG TABLET PO SCH (08:07)
[2020-03-29] MEDS: DIVALPROEX SODIUM 500 MG DR TABLET PO SCH (08:07)
[2020-03-29 08:40] LABS: COVID AG,FIA SOURCE NASOPHARYNGEAL
[2020-03-29 08:48] VITALS: BP 116/69
[2020-03-29] MEDS ORDERED: HALO5TAB2 PO (09:55)
[2020-03-29] MEDS ORDERED: OMEG-136 PO (10:00)
[2020-03-29] MEDS ORDERED: MULT-199 PO (10:01)
[2020-04-07] MEDS ORDERED: RisperiDONE MICROSPHERES 50 MG/2 ML SYRINGE IM SCH (09:00)
== END 2020-03-29 13:28 | disposition home or self-care (01) | DRG 750 ==
LOC: B2S 12:53 → B3A 01-20 17:13 → B2S 02-03 18:31
PROVIDERS: ADMIT Psychiatry & Neurology Psychiatry; ATTEND Psychiatry & Neurology Psychiatry
DX: F20.0 Paranoid schizophrenia (principal); F41.9 Anxiety disorder, unspecified; R45.851 Suicidal ideations; E88.09 Other disorders of plasma-protein metabolism, not elsewhere classified; Z20.822 Contact with and (suspected) exposure to COVID-19; D64.9 Anemia, unspecified; G47.00 Insomnia, unspecified; K59.00 Constipation, unspecified; F19.10 Other psychoactive substance abuse, uncomplicated; Z79.899 Other long term (current) drug therapy; Z91.19 Patient's noncompliance with other medical treatment and regimen; Z28.21 Immunization not carried out because of patient refusal
CPT/HCPCS: 80307; 83036; 83540; 83550; 83735; 84100; 84439; 84443; 87426; J2794